=== PATIENT | male | born 1940 | race Two or more races ===

== ENCOUNTER 2016-10-31 11:56 | Emergency (ER) | payer MEDICARE, OTHER ==
[~2016-10-31] VITALS: Ht 175.3 cm; Wt 72.6 kg
[2016-10-31 12:14] VITALS: BP 161/71
[2016-10-31] MEDS ORDERED: ACETAMINOPHEN ES 500 MG TABLET PO ONE (12:30)
[2016-10-31] MEDS ORDERED: ACETAMINOPHEN ES 500 MG TABLET ONE (12:31)
== END 2016-10-31 13:46 | disposition home or self-care (01) ==
LOC: ER 12:04
DX: M17.11 Unilateral primary osteoarthritis, right knee (principal); E11.9 Type 2 diabetes mellitus without complications
CPT/HCPCS: 73502; 73564; 99284; A4606; 73510-TC; Z7610

== ENCOUNTER 2017-05-10 11:27 | Emergency (ER) | payer MEDICARE, OTHER ==
[~2017-05-10] VITALS: Ht 182.9 cm; Wt 81.6 kg
--- NOTE | 2017-05-10 11:46 | NUR ---
bib from home dt congestion, headache, L sided chest pain since last night. Patient is aao4. Appears in no apparent distress.Respiration even and unlabored. Skin is warm to touch and non diaphoretic. Afebrile. vss. Gowned pt and placed on tele monitor.
[2017-05-10 12:30] LABS: BASOPHILS # (AUTO) 0.1 /CMM (0.0-0.2); BASOPHILS % (AUTO) 1.8 % (0.0-2.0); EOSINOPHILS % (AUTO) 0.4 % (0.0-6.0); HEMATOCRIT 48 % (39-51); HEMOGLOBIN 16.2 g/dL (13.5-17.5); LYMPHOCYTES # (AUTO) 1.4 /CMM (0.8-4.8); LYMPHOCYTES % (AUTO) 22.7 % (20.0-44.0); MEAN CORPUSCULAR HEMOGLOBIN 30 PG (26.0-33.0); MEAN CORPUSCULAR HGB CONC 34 g/dl (31.0-36.0); MEAN CORPUSCULAR VOLUME 90 fL (80-96); MONOCYTES # (AUTO) 0.3 /CMM (0.1-1.30); MONOCYTES % (AUTO) 4.8 % (2.0-12.0); NEUTROPHILS # (AUTO) 4.4 /CMM (1.8-8.9); NEUTROPHILS % (AUTO) 70.3 % (43.0-81.0); PLATELET COUNT (AUTO) 146 /CMM (150-450); RDW COEFFICIENT OF VARIATION 12.9 (11.5-15.0); RED BLOOD CELL COUNT(AUTO) 5.33 MIL/uL (4.5-6.0); WHITE BLOOD COUNT (AUTO) 6.2 K/uL (4.3-11.0)
--- NOTE | 2017-05-10 12:33 | NUR ---
IV ACCESS STARTED. BLOOD DRAWN FOR LABS. PT MEDICATED ORDERED.
[2017-05-10 12:41] LABS: CALCIUM, SERUM 8.7 mg/dL (8.5-10.1); CARBON DIOXIDE 30 mmol/L (21-32); CHLORIDE 102 mmol/L (98-107); GLUCOSE 294 mg/dL (74-106); POTASSIUM 4.1 mmol/L (3.5-5.1); SODIUM SERUM 134 mmol/L (136-145); UREA NITROGEN, BLOOD 17 mg/dL (7-18)
[2017-05-10 12:47] LABS: ALANINE AMINOTRANSFERASE 21 U/L (12-78); ALBUMIN 3.5 g/dL (3.4-5.0); ALKALINE PHOSPHATASE 115 U/L (46-116); ASPARTATE AMINOTRANSFERASE 25 U/L (15-37); BILIRUBIN,DIRECT 0.1 mg/dL (0.0-0.2); BILIRUBIN,TOTAL 0.4 mg/dL (0.2-1.0); LIPASE 162 U/L (73-393); TOTAL PROTEIN, SERUM 7.7 g/dL (6.4-8.2)
[2017-05-10 12:49] LABS: TROPONIN I < 0.017 ng/mL (0.00-0.056)
[2017-05-10 12:50] LABS: INR 1.01 (0.87-1.13); PROTHROMBIN TIME 10.5 SECS (9.5-12.7)
--- NOTE | 2017-05-10 14:10 | NUR ---
PROVIDED FOOD TRAY FOR PT.
--- NOTE | 2017-05-10 15:00 | NUR ---
IV removed. Catheter intact and site benign. Pressure and 4x4 applied to site. No bleeding noted.
--- NOTE | 2017-05-10 15:10 | NUR ---
Patient discharged to home in stable condition. Written and verbal after care instructions given. Patient verbalizes understanding of instruction. Pt ambulatory with a steady gait.
[2017-05-10 16:04] VITALS: BP 125/89
== END 2017-05-10 16:07 | disposition home or self-care (01) ==
LOC: ER 11:28
DX: K52.9 Noninfective gastroenteritis and colitis, unspecified (principal); E11.65 Type 2 diabetes mellitus with hyperglycemia; Z79.4 Long term (current) use of insulin; Z59.0 Homelessness
CPT/HCPCS: 36415; 71010-TC; 80048-TC; 80076-TC; 82962-TC; 83690-TC; 84484-TC; 85025-TC; 85730-TC; A4606; J1815; J2405; J7030; Z7610

== ENCOUNTER 2017-05-12 08:07 | Inpatient (IN) | payer OTHER, MEDICARE ==
[~2017-05-12] VITALS: Ht 182.9 cm; Wt 74.8 kg
--- NOTE | 2017-05-12 08:20 | NUR ---
PATIENT PRESENTS TO ER C/O NAUSEA AND VOMITING X 3 EPISODES LAST NIGHT WITH DIFFUSED ABD PAIN. PATIENT BREATHING EVEN AND UNLABORED. NO SOB. VITALS STABLE. SAFETY AND COMFORT MEASURES IN PLACE. MD AT BEDSIDE FOR EVAL.
[2017-05-12] MEDS ORDERED: diphenhydrAMINE HCL 50 MG/ML VIAL ONE (08:29)
[2017-05-12] MEDS ORDERED: ONDANSETRON HCL/PF 4 MG/2 ML VIAL ONE (08:29)
[2017-05-12] MEDS ORDERED: IV NS 0.9% 1,000 ML BAG IV ONE (08:30)
[2017-05-12] MEDS ORDERED: ONDANSETRON HCL/PF 4 MG/2 ML VIAL IVP ONE (08:30)
[2017-05-12] MEDS ORDERED: diphenhydrAMINE HCL 50 MG/ML VIAL IV ONE (08:30)
--- NOTE | 2017-05-12 08:40 | NUR ---
NEW IV STARTED ON LFA, 18 G. BLOOD DRAWN AND SENT TO LAB.
[2017-05-12 08:42] LABS: BASOPHILS % (AUTO) 0.5 % (0.0-2.0); HEMATOCRIT 47 % (39-51); HEMOGLOBIN 15.7 g/dL (13.5-17.5); LYMPHOCYTES # (AUTO) 0.7 /CMM (0.8-4.8); LYMPHOCYTES % (AUTO) 9.6 % (20.0-44.0); MEAN CORPUSCULAR HEMOGLOBIN 30 PG (26.0-33.0); MEAN CORPUSCULAR HGB CONC 33 g/dl (31.0-36.0); MEAN CORPUSCULAR VOLUME 90 fL (80-96); MONOCYTES # (AUTO) 0.5 /CMM (0.1-1.30); MONOCYTES % (AUTO) 7.3 % (2.0-12.0); NEUTROPHILS % (AUTO) 82.6 % (43.0-81.0); PLATELET COUNT (AUTO) 155 /CMM (150-450); RDW COEFFICIENT OF VARIATION 13.3 (11.5-15.0); RED BLOOD CELL COUNT(AUTO) 5.25 MIL/uL (4.5-6.0); WHITE BLOOD COUNT (AUTO) 7.2 K/uL (4.3-11.0)
--- NOTE | 2017-05-12 08:44 | NUR ---
PATIENT MEDICATED PER MD ORDERS.
--- NOTE | 2017-05-12 08:55 | NUR ---
Patient is resting comfortably in bed. VSS. All needs attended.
[2017-05-12 09:11] LABS: ALANINE AMINOTRANSFERASE 20 U/L (12-78); ALBUMIN 3.6 g/dL (3.4-5.0); ALKALINE PHOSPHATASE 105 U/L (46-116); ASPARTATE AMINOTRANSFERASE 22 U/L (15-37); BILIRUBIN,DIRECT 0.1 mg/dL (0.0-0.2); BILIRUBIN,TOTAL 0.8 mg/dL (0.2-1.0); CALCIUM, SERUM 8.6 mg/dL (8.5-10.1); CARBON DIOXIDE 20 mmol/L (21-32); CHLORIDE 101 mmol/L (98-107); CREATININE 1.2 mg/dL (0.6-1.3); LIPASE 181 U/L (73-393); POTASSIUM 3.3 mmol/L (3.5-5.1); SODIUM SERUM 137 mmol/L (136-145); TOTAL PROTEIN, SERUM 8.1 g/dL (6.4-8.2); UREA NITROGEN, BLOOD 14 mg/dL (7-18)
[2017-05-12 09:13] LABS: GLUCOSE 358 mg/dL (74-106)
[2017-05-12] MEDS ORDERED: POTASSIUM CL. PREMIX PERIPHER. 100 ML ONE (09:27)
[2017-05-12] MEDS ORDERED: IV NS 0.9% 1,000 ML IV ONE (09:30)
[2017-05-12] MEDS: POTASSIUM CL. PREMIX PERIPHER. 50 ML IV SCH ×2 (09:30→10:30)
[2017-05-12] MEDS ORDERED: INSU100V7 SQ (09:40)
[2017-05-12] MEDS ORDERED: TRAM50TA2 PO (09:40)
[2017-05-12] MEDS ORDERED: ACET-868 PO (09:40)
[2017-05-12] MEDS ORDERED: CLOP75TA2 PO (09:40)
[2017-05-12] MEDS ORDERED: ATOR10TA PO (09:40)
[2017-05-12] MEDS ORDERED: GABA-534 PO (09:40)
--- NOTE | 2017-05-12 09:50 | NUR ---
REPORT GIVEN TO INNA MATTA FOR ADMISSION.
--- NOTE | 2017-05-12 10:55 | NUR ---
PATIENT TRANSPORTED TO ROOM 307-2 VIA ACLS PROTOCOL FOR ADMISSION. RNSIGRID TO PROVIDE COLE.
[2017-05-12 11:00] VITALS: BP 150/94
--- NOTE | 2017-05-12 11:00 | NUR ---
SALES COMMISSIONS ANALYST NURSE PATIENT RECEIVED FROM ER WITH POTASSIUM IV RUNNING 2ND DOSE. NO NAUSEA/VOMITING NOTED. A & O X4, ESTONIAN SPEAKING, NO SOB, NO DISCOMFORT NOTED. ADMITTED UNDER TELEMETRY MONITORING WITH SR 80. NO COLE NOTED AT THIS TIME. PERIPHERAL IV ACCESS TO LFA, INTACT PATENT. VITALS WNL. BED IN LOW LOCKED POSITION. CALL LIGHT WITHIN REACH. CONTINUING TO MONITOR.
[2017-05-12 11:19] VITALS: BP 150/94
[2017-05-12] MEDS ORDERED: Z GUARD REMEDY 2 OZ OINT TP PRN (12:00)
[2017-05-12] MEDS ORDERED: MAGNESIUM HYDROXIDE 30 ML UDC PO PRN (12:00)
[2017-05-12] MEDS ORDERED: MAG HYDROX/AL HYDROX/SIMETH 30 ML UDC PO PRN (12:00)
[2017-05-12] MEDS ORDERED: DEXTROSE 50%-WATER 50 ML DISP.SYRIN IV PRN (12:00)
[2017-05-12] MEDS ORDERED: ONDANSETRON HCL/PF 4 MG/2 ML VIAL IVP PRN (12:00)
[2017-05-12] MEDS ORDERED: ZOLPIDEM TARTRATE 5 MG TABLET PO PRN (12:00)
[2017-05-12] MEDS: IV NS 0.9% 1,000 ML IV PRN (12:20)
[2017-05-12] MEDS: METRONIDAZOLE 500MG/ NS 100ML 500 MG in PREMIX 1 EA IV SCH ×2 (12:43→19:58)
[2017-05-12] MEDS: BLOOD SUGAR DIAGNOSTIC 1 EACH STRIP IN SCH ×3 (13:17→21:39)
[2017-05-12] MEDS: GABAPENTIN 300 MG CAPSULE PO SCH ×2 (13:17→17:25)
[2017-05-12] MEDS: HYDROCODONE/APAP 5/325MG 1 EACH TABLET PO PRN (13:18)
[2017-05-12 13:56] LABS: APPEARANCE,URINE CLEAR (CLEAR); BILIRUBIN,URINE NEGATIVE (NEGATIVE); BLOOD, URINE 1+ Ery/uL (NEGATIVE); COLOR,URINE YELLOW (YELLOW); KETONES,URINE 1+ (NEGATIVE); LEUKOCYTE ESTERASE ,URINE NEGATIVE (NEGATIVE); NITRITE, URINE NEGATIVE (NEGATIVE); PH,URINE 6.5 (5.0-8.0); PROTEIN,URINE TRACE mg/dl (NEGATIVE); UGLUCOSE 2+ mg/dL (NEGATIVE); UROBILINOGEN,URINE 0.2 EU/dL (0.2)
[2017-05-12] MEDS: LEVOFLOXACIN 500 MG /D5W 100ML 500 MG in PREMIX 1 EA IV SCH (13:59)
[2017-05-12 14:08] LABS: BACTERIA,URINE None seen /HPF (None Seen); RBC,URINE 0-2 /HPF (0-2); SQUAMOUS EPITHELIAL CELL,UR None Seen /HPF (None Seen); WBC,URINE NONE SEEN /HPF (0-3)
[2017-05-12] MEDS: INSULIN REGULAR, HUMAN 100 UNIT/ML 3 ML VIAL SQ PRN ×2 (14:36→17:29)
[2017-05-12 16:00] VITALS: BP 136/77
--- NOTE | 2017-05-12 18:43 | NUR ---
TURKEY BONER NOTES PATIENT RESTING IN BED, NO SOB, NO C/O PAIN, NO DISCOMFORT NOTED. FELLING BETTER THAN YESTERDAY, PER PATIENT. NO NAUSEA/VOMITING OR ABDOMINAL PAIN NOTED. IV ACCESS TO LFA, INTACT PATENT. TOLERATED FULL LIQUID DIET WELL.AMBULATORY WITH MINIMUM ASSISTANCE. BED IN LOW LOCKED POSITION. CALL LIGHT WITHIN REACH. WILL ENDORSE TO REGULATORY SPECIALIST.
--- NOTE | 2017-05-12 19:30 | NUR ---
RN NOTES RECEIVED PT. AWAKE ON BED, A/OX3, AT BEDSIDE, DENIES PAIN, NO SOB,AMBULATE WITH ASSIST, CALL LIGHT WITHIN REACH, SIDERAILS UPX2 CONTINUE TO MONITOR
[2017-05-12 20:00] VITALS: BP 140/88
[2017-05-13] VITALS: BP 150/74
[2017-05-13] MEDS: ACETAMINOPHEN 325 MG TABLET PO PRN ×2 (00:18→20:12)
--- NOTE | 2017-05-13 00:20 | NUR ---
RN NOTES PT HAS TEMPERATUFE OF 100- TYLENOL 650MG PO GIVEN ORDERED
[2017-05-13] MEDS: BLOOD SUGAR DIAGNOSTIC 1 EACH STRIP IN SCH ×2 (01:02→04:44)
[2017-05-13] MEDS: HYDROCODONE/APAP 5/325MG 1 EACH TABLET PO PRN ×2 (01:02→08:40)
--- NOTE | 2017-05-13 01:02 | NUR ---
RN NOTES COMPLAINED OF BILATERAL LOWER EXTREMITIES PAIN- NORCO 5/325 MG PO GIVEN ORDERED, V/S STABLE
[2017-05-13] MEDS: INSULIN REGULAR, HUMAN 100 UNIT/ML 3 ML VIAL SQ PRN ×4 (01:08→17:13)
[2017-05-13 04:00] VITALS: BP 131/79
[2017-05-13] MEDS: METRONIDAZOLE 500MG/ NS 100ML 500 MG in PREMIX 1 EA IV SCH ×3 (04:44→20:12)
[2017-05-13] MEDS: IV NS 0.9% 1,000 ML IV PRN (04:52)
--- NOTE | 2017-05-13 06:43 | NUR ---
RN NOTES AWAKE, DENIES PAIN, NO SOB, IV LINE PATENT NO REDNESS OR SWOLLEN, MORNING CARE RENDERED, CALL LIGHT WITHIN REACH, SIDERAILS UPX2 PT,. NEEDS ATTENDED
[2017-05-13 07:07] LABS: BASOPHILS % (AUTO) 0.3 % (0.0-2.0); EOSINOPHILS # (AUTO) 0.1 /CMM (0.0-0.7); EOSINOPHILS % (AUTO) 0.7 % (0.0-6.0); HEMATOCRIT 47 % (39-51); HEMOGLOBIN 15.3 g/dL (13.5-17.5); LYMPHOCYTES # (AUTO) 2.2 /CMM (0.8-4.8); LYMPHOCYTES % (AUTO) 27.5 % (20.0-44.0); MEAN CORPUSCULAR HEMOGLOBIN 30 PG (26.0-33.0); MEAN CORPUSCULAR HGB CONC 33 g/dl (31.0-36.0); MEAN CORPUSCULAR VOLUME 90 fL (80-96); MONOCYTES # (AUTO) 0.9 /CMM (0.1-1.30); MONOCYTES % (AUTO) 10.7 % (2.0-12.0); NEUTROPHILS # (AUTO) 4.9 /CMM (1.8-8.9); NEUTROPHILS % (AUTO) 60.8 % (43.0-81.0); PLATELET COUNT (AUTO) 149 /CMM (150-450); RDW COEFFICIENT OF VARIATION 13.5 (11.5-15.0); RED BLOOD CELL COUNT(AUTO) 5.15 MIL/uL (4.5-6.0)
--- NOTE | 2017-05-13 07:10 | NUR ---
RN NOTES SPOKE TO DR. KURTZ IF WE CAN CHANGE THE ACCU CHECK TO AC&HS INSTEAD OF Q 4HRS. BECAUSE PT IS ALREADY COMPLAINING AND BLOOD SUGAR IS NOT THAT HIGH. DR. KURTZ CHANGE IT TO ACCU CHECK AC & HS ORDER NOTED AND CARRIED OUT
--- NOTE | 2017-05-13 07:10 | NUR ---
SHIP BOSS NOTES RECEIVED PATIENT IN BED, SLEEPING, AROUSES EASILY. ON TELE MONITOR, SINUS RHYTHM, APPEARS COMFORTABLE IN BED, NO SOB, BREATHING EVEN AND NON LABORED. IV NS INFUSING AT 75ML/HR. CALL LIGHT WITHIN REACH. WILL CONT TO MONITOR.
[2017-05-13] MEDS ORDERED: DEXTROSE 50%-WATER 50 ML DISP.SYRIN IV PRN (07:30)
[2017-05-13] MEDS: BLOOD SUGAR DIAGNOSTIC 1 EACH STRIP VI SCH ×4 (07:30→22:18)
[2017-05-13 07:33] LABS: CHOLESTEROL 216 mg/dL (<200); HDL CHOLESTEROL 33 mg/dL (40-60); LDL 162 mg/dL (0-99); TRIGLYCERIDES 84 mg/dL (30-150)
--- NOTE | 2017-05-13 07:37 | NUR ---
ACCU CHECK 0730 NON ADMINISTERED, PATIENT BS 170MG/DL AND RECEIVED 3 UNITS INSULIN REGULAR AT 0505 (2 HOURS AGO). WILL RE CHECK BS NEXT AT 1200.
[2017-05-13 07:47] LABS: CALCIUM, SERUM 8.2 mg/dL (8.5-10.1); CARBON DIOXIDE 27 mmol/L (21-32); CHLORIDE 103 mmol/L (98-107); GLUCOSE 161 mg/dL (74-106); MAGNESIUM 1.4 mg/dL (1.8-2.4); PHOSPHORUS 2.9 mg/dL (2.5-4.9); POTASSIUM 3.5 mmol/L (3.5-5.1); SODIUM SERUM 140 mmol/L (136-145); UREA NITROGEN, BLOOD 10 mg/dL (7-18)
[2017-05-13 08:00] VITALS: BP 136/66
[2017-05-13] MEDS: CLOPIDOGREL BISULFATE 75 MG TABLET PO SCH (08:32)
[2017-05-13] MEDS: PANTOPRAZOLE 40 MG TABLET.DR PO SCH (08:33)
[2017-05-13] MEDS: GABAPENTIN 300 MG CAPSULE PO SCH ×3 (08:33→16:36)
[2017-05-13] MEDS: ATORVASTATIN 10 MG TABLET PO SCH (08:41)
[2017-05-13] MEDS: Magnesium 1GM/D5W 100ML PREMIX 100 ML IV SCH ×4 (10:15→16:34)
[2017-05-13] MEDS: LEVOFLOXACIN 500 MG /D5W 100ML 500 MG in PREMIX 1 EA IV SCH (13:34)
[2017-05-13 16:00] VITALS: BP 122/71
--- NOTE | 2017-05-13 18:16 | NUR ---
MS RN CLOSING NOTES PATIENT IN BED, NOT IN DISTRESS. ON ANTIBIOTIC WITH NO ADVERSE SIDE EFFECT, AFEBRILE, NO DIARRHEA. MAGNESIUM SUPPLEMENTED ORDERED. CURRENT DIET TOLERATED WELL, NO EPISODE OF VOMITING. NO C/O PAIN AT THIS TIME. CALL LIGHT WITHIN REACH. CONT HOSP PER DR. MARTINEZ. WILL ENDORSE TO PRIMER CHARGING TOOL SETTER RN FOR COLE.
[2017-05-13 20:00] VITALS: BP 144/83
--- NOTE | 2017-05-13 20:00 | NUR ---
MS RN NOTES PATIENT AWAKE, TALKATIVE, RESTING IN BED. NO C/O PAIN, NO SOB NOTED. IV ACCESS TO LFA INTACT PATENT RUNNING WITH NS 75ML/HR. NO S/S OF INFECTION NOTED AT IV SITE. BED IN SEMI COLLIER POSITION PER PATIENT REQUEST. BE DIN LOW LOCKED POSITION. CALL LIGHT WITHIN REACH. OBSERVING CLOSELY.
[2017-05-13] MEDS: *INSULIN REGULAR(HUMULIN R)HUM 100 UNIT/ML VIAL SQ PRN (22:22)
--- NOTE | 2017-05-14 00:05 | NUR ---
MS RN NOTES PATIENTS VITAL SIGNS WERE CHECKED & NOTED WITH TEMPERATURE OF 100.4. PRN TYLENOL ADMINISTERED. TEMPERATURE DECREASED TO 98.3. PATIENT SLEEPING COMFORTABLY IN BED. CALL LIGHT WITHIN REACH.
[2017-05-14] MEDS: METRONIDAZOLE 500MG/ NS 100ML 500 MG in PREMIX 1 EA IV SCH (03:06)
[2017-05-14] MEDS: IV NS 0.9% 1,000 ML IV PRN (03:13)
--- NOTE | 2017-05-14 04:00 | NUR ---
MS RN NOTES PATIENT SLEEPING IN SEMI COLLIER POSITION. NO DISTRESS OR DISCOMFORT NOTED. IV FLUIDS RUNNING ORDERED. CALL LIGHT WITHIN REACH. OBSERVING CLOSELY.
--- NOTE | 2017-05-14 06:30 | NUR ---
MS RN NOTES PATIENT SLEPT INTERMITTENTLY IN SEMI COLLIER POSITION. NO C/O PAIN. NO SOB, NO S/S OF INFECTION NOTED. VITALS SIGNS WNL. NO FEVER NOTED. IV ACCESS TO LFA, INTACT PATENT, RUNNING WITH NS AT 75ML/HR. NO REDNESS/INFILTRATION NOTED AT IV SITE. AMBULATED WITH WALKER TO THE RESTROOM. BED IN LOW LOCKED POSITION. CALL LIGHT WITHIN REACH. WILL ENDORSE TO AM SHIFT.
[2017-05-14] MEDS: BLOOD SUGAR DIAGNOSTIC 1 EACH STRIP VI SCH ×4 (06:42→21:11)
[2017-05-14] MEDS: INSULIN REGULAR, HUMAN 100 UNIT/ML 3 ML VIAL SQ PRN ×3 (06:46→17:32)
--- NOTE | 2017-05-14 07:02 | NUR ---
RN NOTES AWAKE, DENIES PAIN, NO SOB, IV LINE PATENT, NO REDNESS OR SWOLLEN, PT NEEDS ATTENDED
--- NOTE | 2017-05-14 07:15 | NUR ---
MS RN NOTES RECEIVED PATIENT IN BED, ON ROOM AIR, TOLERATING WELL, NO SOB. IVF NS INFUSING AT 75ML/HR, APPEARS COMFORTABLY IN BED, NO C/O PAIN AT THIS TIME. CALL LIGHT WITHIN REACH. WILL CONT TO MONITOR.
[2017-05-14 07:51] LABS: BASOPHILS % (AUTO) 0.3 % (0.0-2.0); EOSINOPHILS # (AUTO) 0.1 /CMM (0.0-0.7); EOSINOPHILS % (AUTO) 0.7 % (0.0-6.0); HEMATOCRIT 45 % (39-51); HEMOGLOBIN 14.9 g/dL (13.5-17.5); LYMPHOCYTES # (AUTO) 1.4 /CMM (0.8-4.8); LYMPHOCYTES % (AUTO) 15.6 % (20.0-44.0); MEAN CORPUSCULAR HEMOGLOBIN 30 PG (26.0-33.0); MEAN CORPUSCULAR HGB CONC 33 g/dl (31.0-36.0); MEAN CORPUSCULAR VOLUME 91 fL (80-96); MONOCYTES # (AUTO) 0.7 /CMM (0.1-1.30); MONOCYTES % (AUTO) 8.1 % (2.0-12.0); NEUTROPHILS # (AUTO) 6.9 /CMM (1.8-8.9); NEUTROPHILS % (AUTO) 75.3 % (43.0-81.0); PLATELET COUNT (AUTO) 155 /CMM (150-450); RDW COEFFICIENT OF VARIATION 13.2 (11.5-15.0); RED BLOOD CELL COUNT(AUTO) 4.94 MIL/uL (4.5-6.0); WHITE BLOOD COUNT (AUTO) 9.2 K/uL (4.3-11.0)
[2017-05-14 08:00] VITALS: BP_SYST 143; BP_DIAS 61; BP_DIAS 67
[2017-05-14 08:11] LABS: CALCIUM, SERUM 8.4 mg/dL (8.5-10.1); CARBON DIOXIDE 24 mmol/L (21-32); CHLORIDE 103 mmol/L (98-107); CREATININE 0.9 mg/dL (0.6-1.3); GLUCOSE 205 mg/dL (74-106); MAGNESIUM 1.7 mg/dL (1.8-2.4); PHOSPHORUS 2.8 mg/dL (2.5-4.9); POTASSIUM 3.6 mmol/L (3.5-5.1); SODIUM SERUM 138 mmol/L (136-145); UREA NITROGEN, BLOOD 7 mg/dL (7-18)
[2017-05-14] MEDS: CLOPIDOGREL BISULFATE 75 MG TABLET PO SCH (08:52)
[2017-05-14] MEDS: ATORVASTATIN 10 MG TABLET PO SCH (08:53)
[2017-05-14] MEDS: PANTOPRAZOLE 40 MG TABLET.DR PO SCH (08:53)
[2017-05-14] MEDS: HYDROCODONE/APAP 5/325MG 1 EACH TABLET PO PRN (08:54)
[2017-05-14] MEDS: GABAPENTIN 300 MG CAPSULE PO SCH ×3 (08:56→16:34)
[2017-05-14] MEDS: METRONIDAZOLE 500 MG TABLET PO SCH ×2 (12:53→21:23)
[2017-05-14] MEDS: Magnesium 1GM/D5W 100ML PREMIX 100 ML IV SCH ×2 (12:53→14:01)
[2017-05-14] MEDS: LEVOFLOXACIN (500MG) 500 MG TABLET PO SCH (12:56)
[2017-05-14] MEDS: TRAMADOL HCL 50 MG TABLET PO PRN (12:57)
[2017-05-14] MEDS ORDERED: Magnesium 1GM/D5W 100ML PREMIX 100 ML IV SCH (14:00)
[2017-05-14 16:00] VITALS: BP 125/84
--- NOTE | 2017-05-14 18:16 | NUR ---
MS RN CLOSING NOTES PATIENT IN BED, IVF NS INFUSING AT 75ML/HR, TOLERATING WELL, NO SOB. MAGNESIUM SUPPLEMENTED. ON ANTIBIOTIC WITH NO ADVERSE SIDE EFFECT. CURRENT DIET TOLERATED WELL, NO EPISODE OF VOMITING. CALL LIGHT WITHIN REACH. CONT HOSP PER DR. MARTINEZ, WILL ENDORSE TO COIN MACHINE ASSEMBLER RN FOR COLE.
[2017-05-14 20:00] VITALS: BP 137/82
[2017-05-14] MEDS: *INSULIN REGULAR(HUMULIN R)HUM 100 UNIT/ML VIAL SQ PRN (21:24)
[2017-05-15] MEDS: METRONIDAZOLE 500 MG TABLET PO SCH ×3 (04:45→21:51)
[2017-05-15] MEDS: IV NS 0.9% 1,000 ML IV PRN (05:35)
--- NOTE | 2017-05-15 06:03 | NUR ---
RN NOTes Pt received patient at around 21:30 from INNA Watters. Patient is in bed awake and alert x1. No apparent distress noted. Skin warm and dry to touch. No c/o pain or discomfort. Noted with confusion, Reality orientation provided. All due meds given as ordered. All needs attended. Will continue to monitor.
--- NOTE | 2017-05-15 06:08 | NUR ---
RN NOTES Received patient in bed awake and alert x4, no c/o bill or discomfort , no SOB, skin is warm and dry to touch, pt in no apparent distress. at bedside. All due meds given as ordered. Assisted to the bathroom. All needs attended. No acute change in condition. Will continue to monitor.
--- NOTE | 2017-05-15 06:08 | NUR ---
RN NOTES Error in previous charting.
[2017-05-15] MEDS: PANTOPRAZOLE 40 MG TABLET.DR PO SCH (06:23)
[2017-05-15] MEDS: BLOOD SUGAR DIAGNOSTIC 1 EACH STRIP VI SCH ×4 (06:26→21:52)
[2017-05-15] MEDS: INSULIN REGULAR, HUMAN 100 UNIT/ML 3 ML VIAL SQ PRN ×4 (06:29→22:11)
[2017-05-15 07:15] LABS: CARBON DIOXIDE 25 mmol/L (21-32); CHLORIDE 103 mmol/L (98-107); CREATININE 0.9 mg/dL (0.6-1.3); GLUCOSE 159 mg/dL (74-106); MAGNESIUM 1.5 mg/dL (1.8-2.4); SODIUM SERUM 138 mmol/L (136-145); UREA NITROGEN, BLOOD 10 mg/dL (7-18)
[2017-05-15 08:00] VITALS: BP 120/79
[2017-05-15 08:45] VITALS: BP_SYST 108; BP_SYST 115; BP_SYST 124; BP_DIAS 49; BP_DIAS 55; BP_DIAS 74
--- NOTE | 2017-05-15 08:45 | NUR ---
m/s upholstery mechanic: md visit seen and examined by dr. strickland at this time and ortho static b/p done per md. md aware of orthostatic b/p results.
[2017-05-15] MEDS: CLOPIDOGREL BISULFATE 75 MG TABLET PO SCH (08:54)
[2017-05-15] MEDS: ATORVASTATIN 10 MG TABLET PO SCH (08:54)
[2017-05-15] MEDS: TRAMADOL HCL 50 MG TABLET PO PRN (08:54)
[2017-05-15] MEDS: GABAPENTIN 300 MG CAPSULE PO SCH ×3 (08:54→16:35)
[2017-05-15 08:57] VITALS: BP 120/79
[2017-05-15] MEDS: Magnesium 1GM/D5W 100ML PREMIX 100 ML IV SCH ×2 (09:25→10:47)
[2017-05-15] MEDS: POTASSIUM CL. PREMIX PERIPHER. 50 ML IV SCH ×7 (09:46→16:43)
--- NOTE | 2017-05-15 09:55 | NUR ---
m/s bituminous distributor operator: notes placed pt on tele sr=[id number] due to iv potassium chloride ivpb. will continue to monitor.
[2017-05-15] MEDS: LEVOFLOXACIN (500MG) 500 MG TABLET PO SCH (11:53)
--- NOTE | 2017-05-15 14:30 | NUR ---
m/s superintendent radio communications: notes tele remains sr=[id number]. potassium chloride 10meq ivpb in progress run by rn covering. call light within reach. will continue to monitor.
[2017-05-15 16:00] VITALS: BP 116/69
--- NOTE | 2017-05-15 16:43 | NUR ---
m/s framing machine tender: notes last dose of potassium chloride 10meq (bag #6) given by hailey. tele remains sr=72. instructed to call for assistance. will continue to monitor. Addendum: 05/15/17 at 1706 by PARTHA WATSON RN above charting error
--- NOTE | 2017-05-15 16:43 | NUR ---
m/s aircraft manager: notes last dose of potassium chloride 10meq (bag #6) given by rn. tele remains sr=[id number]. instructed to call for assistance. will continue to monitor.
[2017-05-15] MEDS ORDERED: POTASSIUM CL. PREMIX PERIPHER. 50 ML IV SCH (17:15)
--- NOTE | 2017-05-15 18:05 | NUR ---
m/s tent worker: notes tele removed. potassium chloride ivpb completed. no arrhythmia noted. needs attended. assisted to bathroom and back safely to bed. instructed to call for assistance. call light within reach. will continue to monitor.
--- NOTE | 2017-05-15 19:48 | NUR ---
nURSING nOTES: rECIEVED PATIENT ALERT AND ORIENTATED. eXPLAINED TO HIM ABOUT CALLING THE NURSE BEFORE GETTIING OUT OF BED FOR SAFETY. bED aLARM ON cOMPRESSION STKINGS PLACED ON PT WITH EXPLAINATION. gOOD EYE CONTACT SPEECH CLEAR MOVING ALL EXTREMITIES. nO PEDAL EDEMA. NO PAIN
[2017-05-15 20:29] VITALS: BP 126/71
[2017-05-15] MEDS: *INSULIN REGULAR(HUMULIN R)HUM 100 UNIT/ML VIAL SQ PRN (22:22)
[2017-05-16] MEDS: IV NS 0.9% 1,000 ML IV PRN (00:03)
--- NOTE | 2017-05-16 04:35 | NUR ---
nursing notes patient this 12 hours had a restless sleep, waking up to use the urinal about 6 times, once pulling out his iv. in replaced and will remind him to use the urinal or call the nurse to get oob no c/o of dizziness or nausea, speaks of going home today'
[2017-05-16] MEDS: METRONIDAZOLE 500 MG TABLET PO SCH ×2 (05:00→12:03)
[2017-05-16] MEDS: INSULIN REGULAR, HUMAN 100 UNIT/ML 3 ML VIAL SQ PRN ×3 (06:27→17:42)
[2017-05-16] MEDS: HYDROCODONE/APAP 5/325MG 1 EACH TABLET PO PRN (06:40)
--- NOTE | 2017-05-16 07:05 | NUR ---
MS RN OPENING NOTES RECEIVED PT FROM NIGHTSHIFT NURSE IN STABLE CONDITION. PT IS A/O X3. NO SOB OR SIGNS OF DISTRESS NOTED. BREATHING IS EVEN AND UNLABORED. PT DENIES ANY PAIN AT THIS TIME. NO DIARRHEA NOTED OR REPORTED BY PT. OR NIGHTSHIFT NURSE. IV PRESENT ON LEFT HAND 22G INFUSING NS @75ML/HR. PT IS TOLERATING INFUSION WILL. NO REDNESS OR SIGNS OF INFILTRATION NOTED. PT IS TOLERATING INFUSION WELL. BED IN LOW LOCKED POSITION, SIDE RAILS UP X3, CALL LIGHT WITHIN REACH. WILL CONTINUE TO MONITOR.
[2017-05-16 08:00] VITALS: BP 132/79
[2017-05-16] MEDS: BLOOD SUGAR DIAGNOSTIC 1 EACH STRIP VI SCH ×3 (08:48→17:30)
[2017-05-16] MEDS: ATORVASTATIN 10 MG TABLET PO SCH (08:49)
[2017-05-16] MEDS: PANTOPRAZOLE 40 MG TABLET.DR PO SCH (08:50)
[2017-05-16] MEDS: CLOPIDOGREL BISULFATE 75 MG TABLET PO SCH (08:50)
[2017-05-16] MEDS: GABAPENTIN 300 MG CAPSULE PO SCH ×3 (08:50→17:30)
[2017-05-16] MEDS ORDERED: METR500T PO (08:53)
[2017-05-16] MEDS ORDERED: LEVO500T15 PO (08:53)
[2017-05-16] MEDS: LEVOFLOXACIN (500MG) 500 MG TABLET PO SCH (12:03)
--- NOTE | 2017-05-16 14:10 | NUR ---
Social service consult requested by Dr. Nina for homeless resources. Pt. is a 77 year old male who was admitted to [facility] for gastroenteritis. SW met with pt. bedside. Pt. is alert and oriented x4. Pt. is predominantly Jamaican speaking, however is able to speak and understand some Nepali. Pt. states he lives in his car and has been living in his car for the past two years. Pt. stated prior to two years, he was living with his family. However, when the family decided to move to [place], he decided to stay back. Pt. has a son who resides in [place]. SW offered alf placement, however pt. refused. Pt. did accept the following Homeless resources: List of food [place] in [facility], Homeless resource Directory that has information on emergency housing, hot meals and showers, Homeless resource agencies and list of homeless shelters such as [facility] on [facility] and [facility] in [place]. JANUSZ with the help of educational speech language clinician, YARELIS William contacted pt's friend Celina who confirmed that she will be picking up pt. today around 5PM since pt. is medically cleared.
[2017-05-16 16:00] VITALS: BP 112/58
--- NOTE | 2017-05-16 19:05 | NUR ---
MS RN CLOSING NOTES PT REMAINS IN STABLE CONDITION. ALL NEEDS MET DURING SHIFT AND ORDERS CARRIED OUT ACCORDINGLY. PT STATES THAT HIS FRIEND IS ON HER WAY TO PICK HIM UP. DISCHARGE INSTRUCTIONS DISCUSSED WITH PT. PT GIVEN PRESCRIPTION AND DISCHARGE PAPERWORK. PT. SIGNED ALL DISCHARGE PAPERWORK. WILL ENDORSE TO [facility] NURSE TO OVERSEE DISCHARGE.
--- NOTE | 2017-05-16 19:30 | NUR ---
RN NOTES RECEIVED PT. AWAKE ON BED, A/OX3, JUST WAITING FOR HIS FRIEND TO PICK HIM UP, DENIES PAIN, NO SOB, CALL LIGHT WITHIN REACH, SIDERAILS UPX2 CONTINUE TO MONITOR
[2017-05-16 20:00] VITALS: BP 121/71
--- NOTE | 2017-05-16 20:15 | NUR ---
RN NOTES PT. FRIEND CAME AND TOLD US THAT PT DOESN'T WANT TO LEAVE, FIRST HE TOLD HIS FRIEND THAT HE DOESN'T WANT TO GO TO HIS FAMILY AND THEN HE SAID HE FEELS DIZZY BUT V/S STABLE
--- NOTE | 2017-05-16 20:25 | NUR ---
RN NOTES CALLED [facility] TO INFORMED HIM THAT PT. DOESN'T WANT TO LEAVE AGAIN, THE PT. WAS ALREADY DISCHARGE SINCE YESTERDAY AND THEY ALREADY LET HIM STAY LAST NIGHT. CHARGE NURSE TALKED TO THE PT. AND WE READ FROM ELECTRONIC DESIGN ENGINEER NOTES THAT PT. REFUSED DETENTION. DR. TUCKER DID NOT GIVE ONE MORE NIGHT , HE STATED IF PT REFUSED DETENTION WE CANNOT DO ANYTHING ABOUT IT
--- NOTE | 2017-05-16 20:35 | NUR ---
RN NOTES TALKED TO THE PT. AND EXPLAINED TO HIM WELL TO HIS FRIEND THAT THE DOCTOR WILL NOT GIVE HIM ANOTHER NIGHT TO STAY. NOW THE PT. WAS TELLING HIS FRIEND THAT NOBODY OFFER HIM [facility]. CHARGE NURSE TALKED TO THE PT WELL TO PT'S FRIEND. AND AGREED TO LEAVE. WOOD FENCE INSTALLER WHEEL THE PT DOWN, V/S STABLE, DENIES PAIN, NO SOB
--- NOTE | 2017-05-16 20:35 | NUR ---
RN NOTES PT LEAVE AGREED TO BE DISCHARGE , DISCHARGE INSTRUCTION WAS GIVEN BY THE DAYSHIFT AND WE REPEAT IT AGAIN SO PT. WILL UNDERSTAND IT. PT DOESN'T WANT TO LISTEN SINCE HE 'S UPSET BECAUSE MUCH POSSIBLE HE DOESN'T WANT TO LEAVE
== END 2017-05-16 20:30 | disposition home or self-care (01) | DRG 373 ==
LOC: ER 08:11 → TELE 10:12 → MED 05-13 11:44
PROVIDERS: ADMIT Internal Medicine; ATTEND Internal Medicine
DX: A04.9 Bacterial intestinal infection, unspecified (principal); E11.65 Type 2 diabetes mellitus with hyperglycemia; K76.89 Other specified diseases of liver; E86.0 Dehydration; E83.42 Hypomagnesemia; E78.5 Hyperlipidemia, unspecified; E87.6 Hypokalemia; I10 Essential (primary) hypertension; K21.9 Gastro-esophageal reflux disease without esophagitis; N20.0 Calculus of kidney; K40.90 Unilateral inguinal hernia, without obstruction or gangrene, not specified as recurrent; M46.06 Spinal enthesopathy, lumbar region; I25.10 Atherosclerotic heart disease of native coronary artery without angina pectoris; N40.0 Benign prostatic hyperplasia without lower urinary tract symptoms; M16.11 Unilateral primary osteoarthritis, right hip; Z79.4 Long term (current) use of insulin; I70.8 Atherosclerosis of other arteries
CPT/HCPCS: 36415; 80048-TC; 80061-TC; 80076-TC; 81000-TC; 82962-TC; 83690-TC; 83735-TC; 84100-TC; 85025-TC; 87040-TC; 87081-TC; 97116-TC; 97530-TC; A4216; A4606; J1200; J1815; J1956; J2405; J3475; J3480; J3490; J7030; J7050; Z7610

== ENCOUNTER 2017-07-19 11:19 | Emergency (ER) | payer MEDICARE, OTHER ==
[~2017-07-19] VITALS: Ht 160 cm; Wt 77.1 kg
[2017-07-19 11:19] VITALS: BP 124/59
[~2017-07-19 11:19] MED LIST: ACET-868 PO; ATOR10TA PO; CLOP75TA2 PO; GABA-534 PO; INSU100V7 SQ; LEVO500T15 PO; METR500T PO; TRAM50TA2 PO
[2017-07-19] MEDS ORDERED: KETOROLAC TROMETHAMINE INJ 30 MG/ML VIAL ONE (11:48)
[2017-07-19] MEDS ORDERED: KETOROLAC TROMETHAMINE INJ 30 MG/ML VIAL IM ONE (12:00)
== END 2017-07-19 12:12 | disposition home or self-care (01) ==
LOC: ER 11:21
DX: M54.41 Lumbago with sciatica, right side (principal); I10 Essential (primary) hypertension; E11.9 Type 2 diabetes mellitus without complications; E78.5 Hyperlipidemia, unspecified; Z59.0 Homelessness; Z79.4 Long term (current) use of insulin
CPT/HCPCS: 96372; 99283; A4606; J1885; Z7610

== ENCOUNTER 2018-09-07 13:32 | Emergency (ER) | payer MEDICARE, OTHER ==
[~2018-09-07] VITALS: Ht 170.2 cm; Wt 79.4 kg
[~2018-09-07 13:32] MED LIST changes: +CLOP75TA15 PO; -CLOP75TA2 PO; -LEVO500T15 PO; +LEVO500T2 PO
--- NOTE | 2018-09-07 13:51 | NUR ---
DR MENARD AT BEDSIDE FOR EVAL.
[2018-09-07] MEDS ORDERED: IV NS 0.9% 500 ML BAG IV ONE (14:30)
[2018-09-07] MEDS ORDERED: ONDANSETRON HCL/PF 4 MG/2 ML VIAL IVP ONE (14:30)
--- NOTE | 2018-09-07 14:35 | NUR ---
DOCK COORDINATOR AT BEDSIDE FOR BLOOD DRAW.
[2018-09-07 14:41] LABS: BASOPHILS # (AUTO) 0.1 /CMM (0.0-0.2); EOSINOPHILS % (AUTO) 1.3 % (0.0-6.0); HEMATOCRIT 43 % (39-51); HEMOGLOBIN 14.4 g/dL (13.5-17.5); LYMPHOCYTES # (AUTO) 1.3 /CMM (0.8-4.8); LYMPHOCYTES % (AUTO) 16.9 % (20.0-44.0); MEAN CORPUSCULAR HGB CONC 34 g/dl (31.0-36.0); MEAN CORPUSCULAR VOLUME 91 fL (80-96); MONOCYTES # (AUTO) 0.6 /CMM (0.1-1.30); MONOCYTES % (AUTO) 7.9 % (2.0-12.0); NEUTROPHILS # (AUTO) 5.8 /CMM (1.8-8.9); NEUTROPHILS % (AUTO) 72.9 % (43.0-81.0); PLATELET COUNT (AUTO) 250 /CMM (150-450); RED BLOOD CELL COUNT(AUTO) 4.71 MIL/uL (4.5-6.0); WHITE BLOOD COUNT (AUTO) 7.9 K/uL (4.3-11.0)
[2018-09-07] MEDS ORDERED: ONDANSETRON HCL/PF 4 MG/2 ML VIAL ONE (14:41)
[2018-09-07 14:53] LABS: ALANINE AMINOTRANSFERASE 18 U/L (12-78); ALBUMIN 3.2 g/dL (3.4-5.0); ALKALINE PHOSPHATASE 133 U/L (46-116); ASPARTATE AMINOTRANSFERASE 11 U/L (15-37); BILIRUBIN,DIRECT 0.1 mg/dL (0.0-0.2); BILIRUBIN,TOTAL 0.4 mg/dL (0.2-1.0); CALCIUM, SERUM 8.1 mg/dL (8.5-10.1); CARBON DIOXIDE 27 mmol/L (21-32); CHLORIDE 101 mmol/L (98-107); CREATININE 1.2 mg/dL (0.6-1.3); LIPASE 131 U/L (73-393); POTASSIUM 3.8 mmol/L (3.5-5.1); SODIUM SERUM 135 mmol/L (136-145); TOTAL PROTEIN, SERUM 7.3 g/dL (6.4-8.2); UREA NITROGEN, BLOOD 13 mg/dL (7-18)
[2018-09-07 14:55] LABS: GLUCOSE 480 mg/dL (74-106)
[2018-09-07] MEDS ORDERED: INSULIN REGULAR, HUMAN 100 UNIT/ML 10 ML VIAL ONE (15:23)
[2018-09-07] MEDS ORDERED: INSULIN REGULAR, HUMAN 100 UNIT/ML 10 ML VIAL SQ ONE (15:30)
--- NOTE | 2018-09-07 15:45 | NUR ---
PT STATES FEELING MUCH BETTER AND WANTS TO LEAVE NOW BECAUSE HE IS GOING TO DRIVE AND DONT WANT TO LEAVE TO LATE. VSS. AMBULATORY W/ WALKER, ,STEADY. VSS. D/C HOME IN STABLE CONDITION.
[2018-09-07 15:47] VITALS: BP 132/77
== END 2018-09-07 15:50 | disposition home or self-care (01) ==
LOC: ER 13:38
DX: S40.012A Contusion of left shoulder, initial encounter (principal); S50.02XA Contusion of left elbow, initial encounter; E11.9 Type 2 diabetes mellitus without complications; I10 Essential (primary) hypertension; E78.5 Hyperlipidemia, unspecified; M54.30 Sciatica, unspecified side; Z60.2 Problems related to living alone; Z79.4 Long term (current) use of insulin; Z79.899 Other long term (current) drug therapy; W18.39XA Other fall on same level, initial encounter; Y93.89 Activity, other specified; Y92.89 Other specified places as the place of occurrence of the external cause; Y99.8 Other external cause status
CPT/HCPCS: 36415; 73030-TC; 73080-TC; 80048-TC; 80076-TC; 83690-TC; 85025-TC; J1815; J2405; J7040

== ENCOUNTER 2019-02-10 19:46 | Emergency (ER) | payer MEDICARE, OTHER ==
[~2019-02-10] VITALS: Ht 180.3 cm; Wt 78.0 kg
--- NOTE | 2019-02-10 20:20 | NUR ---
PRESENTED TO THE ER W/ C/O L SHOULDER / LUE PAIN S/P FALL . VSS. WILL CONT TO MONITOR
[2019-02-10 20:34] LABS: BASOPHILS # (AUTO) 0.1 /CMM (0.0-0.2); BASOPHILS % (AUTO) 1.1 % (0.0-2.0); EOSINOPHILS % (AUTO) 2.4 % (0.0-6.0); HEMATOCRIT 44 % (39-51); LYMPHOCYTES # (AUTO) 1.4 /CMM (0.8-4.8); LYMPHOCYTES % (AUTO) 21.2 % (20.0-44.0); MEAN CORPUSCULAR HGB CONC 34 g/dl (31.0-36.0); MEAN CORPUSCULAR VOLUME 92 fL (80-96); MONOCYTES # (AUTO) 0.6 /CMM (0.1-1.30); MONOCYTES % (AUTO) 8.6 % (2.0-12.0); NEUTROPHILS # (AUTO) 4.5 /CMM (1.8-8.9); NEUTROPHILS % (AUTO) 66.7 % (43.0-81.0); PLATELET COUNT (AUTO) 205 /CMM (150-450); RED BLOOD CELL COUNT(AUTO) 4.76 MIL/uL (4.5-6.0); WHITE BLOOD COUNT (AUTO) 6.7 K/uL (4.3-11.0)
[2019-02-10 20:42] LABS: CALCIUM, SERUM 8.5 mg/dL (8.5-10.1); CARBON DIOXIDE 24 mmol/L (21-32); CHLORIDE 102 mmol/L (98-107); CREATININE 1.1 mg/dL (0.6-1.3); GLUCOSE 302 mg/dL (74-106); SODIUM SERUM 136 mmol/L (136-145); UREA NITROGEN, BLOOD 26 mg/dL (7-18)
[2019-02-10 20:58] LABS: ALANINE AMINOTRANSFERASE 18 U/L (12-78); ALBUMIN 3.4 g/dL (3.4-5.0); ALKALINE PHOSPHATASE 132 U/L (46-116); ASPARTATE AMINOTRANSFERASE 11 U/L (15-37); BILIRUBIN,DIRECT 0.1 mg/dL (0.0-0.2); BILIRUBIN,TOTAL 0.4 mg/dL (0.2-1.0)
--- NOTE | 2019-02-10 21:07 | NUR ---
LAYING DOWN IN BED COMFORTABLY. PT UNABLE TO GIVE URINE SAMPLE YET. WILL ASK AGAIN
[2019-02-10 21:15] LABS: ACETAMINOPHEN < 5 ug/ml (10-30); SALICYLATE < 0.2 mg/dL (2.8-20.0)
[2019-02-10 21:16] LABS: ALCOHOL, BLOOD < 3 mg/dL (0-0)
[2019-02-10] MEDS ORDERED: INSULIN REGULAR, HUMAN 100 UNIT/ML 10 ML VIAL SQ ONE (21:30)
[2019-02-10] MEDS ORDERED: INSULIN REGULAR, HUMAN 100 UNIT/ML 10 ML VIAL ONE (21:31)
--- NOTE | 2019-02-10 22:02 | NUR ---
CALLED ART FOR PSYCH EVAL, LEFT MESSAGE ON VOICEMAIL.
--- NOTE | 2019-02-10 22:04 | NUR ---
RECEIVED CALL BACK FROM ART, SEAFOOD PREPARER, ETA WITHIN THE HOUR.
[2019-02-10 22:30] LABS: APPEARANCE,URINE Clear (CLEAR); BILIRUBIN,URINE Negative (NEGATIVE); BLOOD, URINE Small Ery/uL (NEGATIVE); COLOR,URINE Yellow (YELLOW); KETONES,URINE Trace (NEGATIVE); LEUKOCYTE ESTERASE ,URINE Negative (NEGATIVE); NITRITE, URINE Negative (NEGATIVE); PROTEIN,URINE Negative (NEGATIVE); UGLUCOSE 500 MG/DL mg/dL (NEGATIVE)
--- NOTE | 2019-02-10 22:56 | NUR ---
ART FROM CRISIS TEAM AT THE BED SIDE
[2019-02-10 23:15] LABS: BACTERIA,URINE Few /HPF (None Seen); SQUAMOUS EPITHELIAL CELL,UR Rare /HPF (None Seen)
--- NOTE | 2019-02-11 00:29 | NUR ---
PT IS SITTING ON A CHAIR REPORTED WILLING TO LEAVE AND WILL GO TO HIS DAUGHTER
--- NOTE | 2019-02-11 00:42 | NUR ---
Patient discharged to home in stable condition. Written and verbal after care instructions given. Patient verbalizes understanding of instruction. provided w/ snacks. pt will go to his dtr's house.
--- NOTE | 2019-02-11 00:45 | NUR ---
. Patient given list of available shelters in surrounding area and other resources,
[2019-02-11 00:46] VITALS: BP 129/78
== END 2019-02-11 00:46 | disposition home or self-care (01) ==
LOC: ER 19:51
DX: F32.9 Major depressive disorder, single episode, unspecified (principal); E11.9 Type 2 diabetes mellitus without complications; I10 Essential (primary) hypertension; E78.5 Hyperlipidemia, unspecified; M54.30 Sciatica, unspecified side; Z60.2 Problems related to living alone; Z79.4 Long term (current) use of insulin; Z79.899 Other long term (current) drug therapy
CPT/HCPCS: 36415; 80048; 80076; 80305; 80307; 80329; 81001; 82962; 85025; 87086; 96372; 99284; G0480; J1815; 81000-TC

== ENCOUNTER 2020-07-11 09:44 | Emergency (ER) | payer MEDICARE, OTHER ==
[~2020-07-11] VITALS: Ht 170.2 cm; Wt 79.4 kg
[2020-07-11 09:54] VITALS: BP 128/73
--- NOTE | 2020-07-11 09:55 | NUR ---
PT BIB SELF C/O BILATERAL KNEE PAIN FOR 3 DAYS. DENIES INJURY. VS CHECKED. AWAITING MD WALTERS.
[2020-07-11] MEDS ORDERED: KETOROLAC TROMETHAMINE INJ 30 MG/ML VIAL ONE (10:06)
[2020-07-11] MEDS ORDERED: KETOROLAC TROMETHAMINE INJ 30 MG/ML VIAL IM ONE (10:30)
--- NOTE | 2020-07-11 10:37 | NUR ---
Patient discharged to home in stable condition. Written and verbal after care instructions given. Patient verbalizes understanding of instruction.
== END 2020-07-11 10:38 | disposition home or self-care (01) ==
LOC: ER 09:51
DX: M13.862 Other specified arthritis, left knee (principal); M13.861 Other specified arthritis, right knee; I10 Essential (primary) hypertension; E78.5 Hyperlipidemia, unspecified; E11.9 Type 2 diabetes mellitus without complications; Z60.2 Problems related to living alone; Z79.4 Long term (current) use of insulin; Z79.899 Other long term (current) drug therapy
CPT/HCPCS: 73564 ×2; 96372; 99283; J1885

== ENCOUNTER 2020-07-18 11:28 | Emergency (ER) | payer MEDICARE, OTHER ==
[~2020-07-18] VITALS: Ht 172.7 cm; Wt 79.4 kg
--- NOTE | 2020-07-18 11:40 | NUR ---
c/o right knee pain and abrasion s/p tripped and fall 10/10 pain scale. Patient a/ox4, breathing even and unlabored, no sob noted. Needs attended. Kept comfortable.
[2020-07-18] MEDS ORDERED: ACETAMINOPHEN 325 MG TABLET ONE (11:59)
[2020-07-18] MEDS ORDERED: ACETAMINOPHEN 325 MG TABLET PO ONE (12:00)
--- NOTE | 2020-07-18 12:02 | NUR ---
SHOT DROPPER AT BEDSIDE FOR XRAYS.
--- NOTE | 2020-07-18 12:58 | NUR ---
Patient a/ox4, breathing even and unlabored, no sob noted. Ambulatory with walker. Patient discharged to home in stable condition. Written and verbal after care instructions given. Patient verbalizes understanding of instruction.
[2020-07-18 12:59] VITALS: BP 134/79
== END 2020-07-18 13:00 | disposition home or self-care (01) ==
LOC: ER 11:33
DX: S90.01XA Contusion of right ankle, initial encounter (principal); E78.5 Hyperlipidemia, unspecified; I10 Essential (primary) hypertension; E11.9 Type 2 diabetes mellitus without complications; Z60.2 Problems related to living alone; Z79.899 Other long term (current) drug therapy; W01.0XXA Fall on same level from slipping, tripping and stumbling without subsequent striking against object, initial encounter; Y93.89 Activity, other specified; Y92.89 Other specified places as the place of occurrence of the external cause; Y99.8 Other external cause status
CPT/HCPCS: 73502; 73564-TC

== ENCOUNTER 2022-10-10 16:40 | Inpatient (IN) | payer MEDICARE, OTHER ==
[~2022-10-10] VITALS: Ht 172.7 cm; Wt 69.4 kg
--- NOTE | 2022-10-10 17:05 | NUR ---
BIB RA 839 IN A SITTING POSITION,CHRONIC BILATERAL LEG PAIN GOT WORSE S/p GLF WHEN HE PASSED OUT THIS MORNING BECAUSE HE WAS HUNGRY,RI=[id number]
--- NOTE | 2022-10-10 17:10 | NUR ---
ESTABLISHED IV LINE LEFT AC 20 G
[2022-10-10] MEDS ORDERED: HEPARIN INFUSION/D5W 500 ML IV PRN ×2 (19:30→21:00)
[2022-10-10 19:36] LABS: CALCIUM, SERUM 8.9 mg/dL (8.5-10.1); CARBON DIOXIDE 21 mmol/L (21-32); CHLORIDE 106 mmol/L (98-107); CREATININE 2.5 mg/dL (0.6-1.3); GLUCOSE 123 mg/dL (74-106); SODIUM SERUM 138 mmol/L (136-145); UREA NITROGEN, BLOOD 46 mg/dL (7-18)
--- NOTE | 2022-10-10 19:37 | NUR ---
COVID SWAB SENT TO LAB
--- NOTE | 2022-10-10 20:29 | NUR ---
RECEIVED PT IN ER BED 1, PT IS ALERT AND ORIENTED. RR EVEN AND NONLABORED. CONNECTED TO MONITOR. VSS. FOOD AND DRINK PROVIDED. WILL CONTINUE TO MONITOR
[2022-10-10 20:30] LABS: BASOPHILS # (AUTO) 0.1 K/uL (0.0-0.2); BASOPHILS % (AUTO) 0.9 % (0.0-2.0); EOSINOPHILS % (AUTO) 1.6 % (0.0-6.0); HEMATOCRIT 34 % (39-51); HEMOGLOBIN 11.3 g/dL (13.5-17.5); LYMPHOCYTES # (AUTO) 1.7 K/uL (0.8-4.8); LYMPHOCYTES % (AUTO) 17.1 % (20.0-44.0); MEAN CORPUSCULAR HGB CONC 33 g/dl (31.0-36.0); MEAN CORPUSCULAR VOLUME 87 fL (80-96); MONOCYTES # (AUTO) 0.9 K/uL (0.1-1.30); MONOCYTES % (AUTO) 8.6 % (2.0-12.0); NEUTROPHILS # (AUTO) 7.3 K/uL (1.8-8.9); NEUTROPHILS % (AUTO) 71.8 % (43.0-81.0); PLATELET COUNT (AUTO) 219 K/uL (150-450); RED BLOOD CELL COUNT(AUTO) 3.96 MIL/uL (4.5-6.0); WHITE BLOOD COUNT (AUTO) 10.2 K/uL (4.3-11.0)
[2022-10-10] MEDS ORDERED: HYDROCODONE/APAP 5/325MG TABLET PO PRN (21:00)
[2022-10-10] MEDS ORDERED: HEPARIN SODIUM, PORCINE 5000 UNITS/1 ML VIAL IV ONE (21:00)
[2022-10-10] MEDS ORDERED: ONDANSETRON HCL/PF 4 MG/2 ML VIAL IVP PRN (21:00)
[2022-10-10] MEDS ORDERED: Z GUARD REMEDY 4 OZ OINT TP PRN (21:00)
--- NOTE | 2022-10-10 21:11 | NUR ---
REPORT GIVEN TO ROWENA KEITH FOR COLE
--- NOTE | 2022-10-10 21:18 | NUR ---
RECEIVED REPORT FROM INNA CARRIZALES FROM .
--- NOTE | 2022-10-10 21:23 | NUR ---
SPEED RUNNER NOTES, PT TRANSFERRED TO [facility] VIA GURNEY. PLACED IN ROOM 118, BED 1. PT AWAKE, ALERT/ORIENTED X4 AND VERBALLY RESPONSIVE. FAROESE SPEAKING ONLY. ON ROOM AIR AND PT TOLERATED WELL. O2 SAT 99%. IV ACCESS ON LAC#20G INTACT AND PATENT. NO S/S OF INFILTRATIONS. NO C/O PAIN OR DISCOMFORT. NO ACUTE DISTRESS. BODY ASSESSMENT DONE. NO SKIN DISCOLORATION OR OPEN SKIN NOTED ANY PART OF THE BODY. ALL SAFETY MEASURES IN PLACE. BED IN LOWEST POSITION AND LOCKED. SIDE RAILS UP X 2, PLACE CALL LIGHT WITH IN REACH. WILL CONTINUE TO MONITOR
--- NOTE | 2022-10-10 21:43 | NUR ---
PT TRANSFERRED TO [facility] , ACLS PROTOCOLS
--- NOTE | 2022-10-10 21:50 | NUR ---
RN NOTES: HEPARIN BOLUS GIVEN BY ER NURSE. STARTED HEPARIN DRIP 1250 UNITS/HR. PT-10.9, INR-1.04, APTT-28.5. WILL CONTINUE TO MONITOR
[2022-10-11] VITALS (7 sets, daily range): BP systolic 127–155; BP diastolic 70–89
[2022-10-11] MEDS ORDERED: DEXTROSE 50%-WATER 50 ML DISP.SYRIN IV PRN
[2022-10-11] MEDS ORDERED: TRAMADOL HCL 50 MG TABLET PO PRN
[2022-10-11] MEDS ORDERED: ACETAMINOPHEN 325 MG TABLET PO PRN
--- NOTE | 2022-10-11 00:34 | NUR ---
RN NOTES: CALLED PHARMACY TO FIND OUT IF POSSIBLE TO RUN HEPARIN DRIP AND IV NS ON THE SAME LINE. TALKED TO HIRAL. MENTIONED CAN'T RUN IV FLUID AND HEPARIN TOGETHER ON THE SAME LINE. TRIED TO INSERT ANOTHER SALINE LOCK BUT PT STRONGLY REFUSED TO INSERT ANOTHER LINE. OFFERED SEVERAL TIMES BUT STILL REFUSED. NOTIFIED LEIGHTON JARAMILLO. ORDER TO RUN THE HEPARIN DRIP ON EXITING LINE AND ORDER TO GET MIDLINE AND RUN IV FLUID IN MIDLINE. ORDER NOTED AND CARRIED OUT.
--- NOTE | 2022-10-11 04:08 | NUR ---
RN NOTES: LAB CAME TO DO THE PPT AND OTHER MORNING LABS. PT STRONGLY REFUSED. OFFERED SEVERAL TIMES BUT STILL REFUSED. STARTED CURSING, SAYING BAD WORDS TO NURSING STAFF MEMBERS. NOTIFIED Chandni JARAMILLO MENTIONED, KEEP TRYING. TOLD ME TO LET THE LAB TO COME AFTER ONE HOUR.
--- NOTE | 2022-10-11 04:46 | NUR ---
RN NOTES: EXPLAINED PT THE RISKS AND BENEFITS WITH HUNGARIAN SPEAKING NURSE BUT PT STILL REFUSED TO DO THE BLOOD WORK. GOT REALLY UPSET, AGAIN STARTED CURSING. JOSÉ CASTILLO. WILL CONTINUE TO TRY.
--- NOTE | 2022-10-11 05:50 | NUR ---
RN NOTES: PT STILL REFUSING TO DO THE LAB WORK. PER DR. MANZANARES, JOSÉ WILL CONTINUE TRY TO ENCOURAGE HIM TO DO LAB WORKS. HEPARIN DRIP CONTINUE WITH THE SAME DOSE 1250UNITS/HR. WILL CONTINUE TO MONITOR
--- NOTE | 2022-10-11 06:55 | NUR ---
RN CLOSING NOTES, PT AWAKE, ALERT/ORIENTED X4 AND VERBALLY RESPONSIVE. ON ROOM AIR AND PT TOLERATED WELL. O2 SAT 99%. IV ACCESS ON LAC#20G INTACT AND PATENT. NO S/S OF INFILTRATIONS. HEPARIN DRIP RUNNING AT 1250UNITS/HR. NO C/O PAIN OR DISCOMFORT. NO ACUTE DISTRESS. LAB WAS ABLE TO DRAW ALL BLOOD WORKS. PT WAS COOPERATIVE AT THIS MOMENT. ALL SAFETY MEASURES IN PLACE. BED IN LOWEST POSITION AND LOCKED. SIDE RAILS UP X 2, PLACE CALL LIGHT WITH IN REACH. WILL ENDORSE TO MORNING SHIFT NURSE.
--- NOTE | 2022-10-11 07:13 | NUR ---
RN OPENING NOTES PATIENT RECEIVED AT BEDSIDE, AWAKE, ALERT/ORIENTED X4 AND VERBALLY RESPONSIVE. CAMEROONIAN SPEAKING ONLY. ON ROOM AIR O2 SAT 99%, WITH NO SIGNS OF DISTRESS. IV ACCESS ON LAC#20G INTACT AND PATENT. NO S/S OF INFILTRATIONS. NO C/O PAIN OR DISCOMFORT. ALL SAFETY MEASURES IN PLACE. BED IN LOWEST POSITION AND LOCKED. SIDE RAILS UP X 2, PLACE CALL LIGHT WITH IN REACH. WILL CONTINUE TO MONITOR
[2022-10-11 07:20] LABS: BASOPHILS # (AUTO) 0.1 K/uL (0.0-0.2); BASOPHILS % (AUTO) 0.7 % (0.0-2.0); EOSINOPHILS % (AUTO) 3.5 % (0.0-6.0); HEMATOCRIT 34 % (39-51); HEMOGLOBIN 11.5 g/dL (13.5-17.5); LYMPHOCYTES # (AUTO) 2.4 K/uL (0.8-4.8); LYMPHOCYTES % (AUTO) 28.3 % (20.0-44.0); MEAN CORPUSCULAR HGB CONC 34 g/dl (31.0-36.0); MEAN CORPUSCULAR VOLUME 88 fL (80-96); MONOCYTES # (AUTO) 0.8 K/uL (0.1-1.30); MONOCYTES % (AUTO) 9.3 % (2.0-12.0); NEUTROPHILS # (AUTO) 4.9 K/uL (1.8-8.9); NEUTROPHILS % (AUTO) 58.2 % (43.0-81.0); PLATELET COUNT (AUTO) 221 K/uL (150-450); RED BLOOD CELL COUNT(AUTO) 3.86 MIL/uL (4.5-6.0); WHITE BLOOD COUNT (AUTO) 8.4 K/uL (4.3-11.0)
--- NOTE | 2022-10-11 07:25 | NUR ---
WOUND CARE CONSULT: RECEIVED CONSULT REQUESTING PODIATRY CONSULT. PT NOTED TO HAVE INTACT SACRAL AREA WITH SCARRING AND LEFT FOOT DEFORMITY WITH SCARRING AND TENDERNESS, PRESENT ON ADMISSION. PT IS INDEPENDENT WITH BED MOBILITY AND IS CONTINENT AT THIS TIME. PODIATRY CONSULT TO BE CALLED THIS AM. IN AGREEMENT WITH PLAN OF CARE.
[2022-10-11 07:55] LABS: CARBON DIOXIDE 25 mmol/L (21-32); CHLORIDE 106 mmol/L (98-107); CREATININE 2.5 mg/dL (0.6-1.3); GLUCOSE 127 mg/dL (74-106); MAGNESIUM 1.9 mg/dL (1.8-2.4); PHOSPHORUS 4.2 mg/dL (2.5-4.9); POTASSIUM 4.3 mmol/L (3.5-5.1); SODIUM SERUM 139 mmol/L (136-145); UREA NITROGEN, BLOOD 45 mg/dL (7-18)
[2022-10-11 08:11] LABS: THYROID STIMULATING HORMONE 0.544 uIU/mL (0.358-3.74)
[2022-10-11] MEDS: BLOOD SUGAR DIAGNOSTIC 1 EACH STRIP IN SCH ×4 (08:19→21:46)
[2022-10-11] MEDS: GABAPENTIN 300 MG CAPSULE PO SCH ×3 (08:19→16:19)
[2022-10-11] MEDS: PANTOPRAZOLE 40 MG TABLET.DR PO SCH (08:19)
[2022-10-11] MEDS: INSULIN REGULAR, HUMAN 100 UNIT/ML 3 ML VIAL SQ PRN ×4 (08:20→21:46)
--- NOTE | 2022-10-11 08:30 | NUR ---
RN NOTE RECEIVED CRITICAL PTT 163.[address] MARIEE RECEIVED ORDER TO HOLD INFUSION. ORDERS FOLLOWED
[2022-10-11] MEDS: ACETAMINOPHEN 325 MG TABLET PO PRN (12:12)
--- NOTE | 2022-10-11 14:00 | NUR ---
RN NOTE RECEIVED PTT 30.[address] MARIEE RESUME HEPARIN DRIP. DRIP RESUMED 1522UNITS/HR
--- NOTE | 2022-10-11 17:18 | NUR ---
RN NOTE PER DR JAYLENE VASQUEZ HEPARIN ORDERS FOLLOWED
[2022-10-11] MEDS: POLYETHYLENE GLYCOL 3350 17 GM POWD.PACK PO PRN (17:26)
[2022-10-11] MEDS: IV NS 0.9% 1,000 ML IV PRN (17:38)
--- NOTE | 2022-10-11 18:32 | NUR ---
RN CLOSING NOTES PT IN BED RESTING/SLEEPING. ON ROOM AIR, MIDLINE LEXI 18G AND R LAC#20G INTACT AND PATENT. NO S/S OF INFILTRATIONS. NO C/O PAIN OR DISCOMFORT. NO ACUTE DISTRESS. ALL SAFETY MEASURES IN PLACE. BED IN LOWEST POSITION AND LOCKED. SIDE RAILS UP X 2, PLACE CALL LIGHT WITH IN REACH. WILL ENDORSE TO SUPERVISOR ASSEMBLY STOCK NURSE.
--- NOTE | 2022-10-11 19:45 | NUR ---
RN NOTE INFORMED PT WE NEED A URINE SAMPLE FROM HIM FOR HIS URINALYSIS. PT SAID HE WILL LET ME KNOW WHEN HE IS READY TO GIVE ONE. WILL F/U WITH PT.
--- NOTE | 2022-10-11 21:33 | NUR ---
RN OPENING NOTE PATIENT RECEIVED AT BEDSIDE, AWAKE, ALERT/ORIENTED X4 AND VERBALLY RESPONSIVE, JAPANESE SPEAKING ONLY. CURRENTLY ON ROOM AIR, TOLERATING WELL SATING @ 100%, WITH NO S/SX OF ACUTE RESPI DISTRESS NOTED. NO SOB. BREATHING IS EVEN AND UNLABORED. UTILITY MECHANIC READS SB HR 50s. IV ACCESS ON LAC#20G AND LEXI ML, BOTH INTACT AND PATENT. NS @ 50 CC/HR CURRENTLY INFUSING. ALL SAFETY MEASURES IN PLACE: BED IN LOWEST POSITION AND LOCKED. BED ALARM ON. SIDE RAILS UP X 2, CALL LIGHT WITHIN REACH. WILL CONTINUE TO MONITOR PT.
[2022-10-11] MEDS: ATORVASTATIN 10 MG TABLET PO SCH (22:03)
--- NOTE | 2022-10-11 22:45 | NUR ---
RN NOTE PT STILL SLEEPING. NO URINE SAMPLE OBTAINED YET. WILL F/U SOON PT WAKES UP.
[2022-10-11] MEDS: INSULIN GLARGINE, 100 UNIT/ML CARTRIDGE SQ SCH (22:52)
[2022-10-12] VITALS (7 sets, daily range): BP systolic 135–150; BP diastolic 66–80
--- NOTE | 2022-10-12 06:36 | NUR ---
RN NOTE URINE SAMPLE TAKEN. LAB NOTIFIED TO TACTICAL DEBRIEFER OFFICER.
--- NOTE | 2022-10-12 06:36 | NUR ---
RN NOTE NO SIGNIFICANT CHANGE T/O THE NIGHT. ALL DUE MEDS GIVEN. NEEDS MET. TURNED AND REPOSITIONED. WILL ENDORSE TO AM SHIFT NURSE FOR COLE.
[2022-10-12 06:48] LABS: BASOPHILS % (AUTO) 0.7 % (0.0-2.0); EOSINOPHILS % (AUTO) 4.1 % (0.0-6.0); HEMATOCRIT 34 % (39-51); HEMOGLOBIN 11.4 g/dL (13.5-17.5); LYMPHOCYTES % (AUTO) 29.6 % (20.0-44.0); MEAN CORPUSCULAR HGB CONC 33 g/dl (31.0-36.0); MEAN CORPUSCULAR VOLUME 88 fL (80-96); MONOCYTES # (AUTO) 0.6 K/uL (0.1-1.30); MONOCYTES % (AUTO) 8.8 % (2.0-12.0); NEUTROPHILS # (AUTO) 3.9 K/uL (1.8-8.9); NEUTROPHILS % (AUTO) 56.8 % (43.0-81.0); PLATELET COUNT (AUTO) 197 K/uL (150-450); WHITE BLOOD COUNT (AUTO) 6.8 K/uL (4.3-11.0)
[2022-10-12 07:03] LABS: BILIRUBIN,URINE NEGATIVE (NEGATIVE); COLOR,URINE YELLOW (YELLOW); LEUKOCYTE ESTERASE ,URINE NEGATIVE (NEGATIVE); NITRITE, URINE NEGATIVE (NEGATIVE); PH,URINE 5.5 (5.0-8.0); PROTEIN,URINE TRACE mg/dl (NEGATIVE); UGLUCOSE NEGATIVE (NEGATIVE); UROBILINOGEN,URINE 0.2 EU/dL (0.2)
--- NOTE | 2022-10-12 07:05 | NUR ---
RN OPENING NOTE PATIENT IN BED, AWAKE, ALERT/ORIENTED X4 AND VERBALLY RESPONSIVE, CROATIAN SPEAKING ONLY. CURRENTLY ON ROOM AIR, TOLERATING WELL SATING @ 100%, WITH NO S/SX OF ACUTE RESPI DISTRESS NOTED. NO SOB. BREATHING IS EVEN AND UNLABORED. GEOSPATIAL TECHNICIAN READS SB HR 59. IV ACCESS ON LAC#20G AND LEXI ML, BOTH INTACT AND PATENT. NS @ 50 CC/HR CURRENTLY INFUSING. ALL SAFETY MEASURES IN PLACE: BED IN LOWEST POSITION AND LOCKED. BED ALARM ON. SIDE RAILS UP X 2, CALL LIGHT WITHIN REACH. WILL CONTINUE TO MONITOR P
[2022-10-12 07:06] LABS: BACTERIA,URINE Rare /HPF (None Seen); SQUAMOUS EPITHELIAL CELL,UR Few /HPF (None Seen); WBC,URINE 0-2 /HPF (0-3)
[2022-10-12 07:25] LABS: CALCIUM, SERUM 8.8 mg/dL (8.5-10.1); CARBON DIOXIDE 22 mmol/L (21-32); CHLORIDE 108 mmol/L (98-107); CREATININE 2.3 mg/dL (0.6-1.3); GLUCOSE 128 mg/dL (74-106); PHOSPHORUS 4.3 mg/dL (2.5-4.9); POTASSIUM 4.3 mmol/L (3.5-5.1); SODIUM SERUM 139 mmol/L (136-145); UREA NITROGEN, BLOOD 42 mg/dL (7-18)
[2022-10-12] MEDS: BLOOD SUGAR DIAGNOSTIC 1 EACH STRIP IN SCH ×4 (07:38→22:05)
[2022-10-12] MEDS: PANTOPRAZOLE 40 MG TABLET.DR PO SCH (07:38)
[2022-10-12] MEDS: GABAPENTIN 300 MG CAPSULE PO SCH ×3 (08:15→16:12)
[2022-10-12] MEDS: ASPIRIN 81 MG TAB.CHEW PO SCH (10:01)
--- NOTE | 2022-10-12 12:00 | NUR ---
RN NOTES: PT REFUSED VITAL SIGNS CHECK, EXPLAINED RISK AND BENEFITS STILL REFUSES
[2022-10-12] MEDS: INSULIN REGULAR, HUMAN 100 UNIT/ML 3 ML VIAL SQ PRN ×2 (12:12→22:10)
--- NOTE | 2022-10-12 15:07 | NUR ---
SS consult: SS Consult requested for homelessness. The pt. is a 82-year-old male pt. who was admitted to Med Surg for acute arterial occlusion of LE, SAPPHIRE per EMR. Upon SS consult, the pt. is Alert & Oriented x 4 and makes good eye contact. The pt. appears well-groomed. Pt. has euthymic mood & affect. Pt. has loud speech and normal thought process. Pt. was calm & cooperative throughout interview. The pt. denies current SI/HI and denies current hallucinations. SW explored pt.s mental health Hx. Pt. denies any Hx. of mental health. SW explored pt.s living situation, Pt. states he has been experiencing homelessness for some a long time. SW explored pt.s drug & ETOH use. Pt. states he has never used drug or alcohol. Per pt. he is ambulatory with a cane or walker and independent with most of his ADLs. Pt. states he receives EBT. Pt. states he is not in communication with his family. Sometimes he stays with a friend in her car. Plan: JANUSZ was notified by CM and pt.s nurse that CM is working on SNF placement and pt. is agreeable to SNF placement, see CM notes for details. JANUSZ also provided pt. with resources for homelessness: shelters, hot meals, showers, mental health clinics etc. Pt. accepted resources and pt. signed homeless waiver which was placed in the pt.s chart. Winter [facility] list : [facility]; AB Adult WSP site; LARS Adult WSP site; and WFD Adult WSP site; instruction to call 211 for availability. Year-round shelters: [facility] [address] [place], [place] [phone] ; [facility] [address] [place] [address]; [facility] [facility]. [facility] [address] Hygiene: [facility]: [address] [address] ; [facility] [address] [facility] ; [facility] [address] Jerel Peoples . Food Resources: [place] [facility] at [facility]- [address] [place]; Meet Each Need with Dignity ([facility]) [address] [place]; [facility] [address] [facility]; [facility] 2946 [facility]. Mental Health resources provided: [facility] [address] [place], [place] [address] ; [facility] [address], [place], [place] [phone] ; [facility] [address] [facility] [place], [place] [phone] ; [facility] [address] [place], [place] [address] Healthcare Clinics: [facility] [address] [facility], [address] [place]. [place] ; [facility] [address] [place] [address]; [facility] [address] [place] [phone]) [phone] Counseling--Outpatient [facility] [address], [address] [place], [place] [address] (Specializes in in-depth psychotherapy for emotional distress: anxiety, depression, interpersonal conflicts, life transitions, childhood abuse) [facility] [address] [place] [address] (Assist with solving problem marital difficulties, separation & divorce, aging parents, & grief, chronic & terminal illness) [facility] [address] [place] [address] (Deal with loss & grief, anxiety, marital difficulties) Homebound/Mental Health Services [address] [facility] [place], [place] [address] (Provide in-home mental services to people who are incapable of leaving their homes) [facility] [address] [place] [address] [facility] [address]. [facility] [place] [address] PSYCHIATRIC OUTPATIENT SERVICES [facility] Partial Hospitalization and Intensive Outpatient Program (Managed Care and [place] Only)[address] [facility] [phone] [facility] Partial Hospitalization and Outpatient [address] [place], [place] [phone] [facility] [place] Lpt[address] [facility]. [address] [place], [place] [phone] [facility] Partial Hospitalization and Outpatient Ydcjehr03880 [facility] Jerel Barreto, [phone] Substance Abuse resources provided included: [facility] Substance Abuse Self-Helpline ([facility]) ; [facility] [address] [facility]. [place] [phone] ; [facility] [address] [facility] [address] ; [facility] [address] [facility] [phone] ; [facility] [address] [facility] [phone] ; [facility] 4940 [facility] [phone] ; [facility] [address]09 [facility], [facility] [phone] ; [facility] Substance Abuse Helpline([facility] ; [facility] ; [facility] [place]; [facility] [place]; [facility] [place]; [facility] Jerel Barreto; [facility] [place]; [facility] [place]; [facility] [place]; [facility], [facility]. [place]; Alcoholics Anonymous -[facility]; Ue-Zkvw-Xkjyspy ; Marijuana Anonymous [facility]; Narcotics Anonymous www.na.org;
[2022-10-12] MEDS: IV NS 0.9% 1,000 ML IV PRN (15:17)
[2022-10-12] MEDS: ACETAMINOPHEN 325 MG TABLET PO PRN (16:33)
--- NOTE | 2022-10-12 19:00 | NUR ---
INSPECTOR ALUMINUM BOAT OPENING NOTE PATIENT IS EATING IN HIS BED. HE IS [place] SPEAKING, BUT ABLE TO UNDERSTAND SIMPLE CITIZEN OF [place]. PT IS ALERT AND ORIENTED, AO X 4. HE IS ON RA, TOLERATED WELL. NO S/S OF DISTRESS OR SOB. PATIENT IS ON EXTERNAL RADIO RECORDER, ON THE MONITOR, HIS HEART RHYTHM IS SR WITH PVCS; AND HIS HEART RATE IS AT 70s. PATIENT HAS TWO IV ACCESS: ONE IS AT HIS LEXI ML, #18G; RUNNING NS @ 50 ML/HR. ANOTHER ONE IS AT HIS L AC, #20G. BOTH SITES ARE PATENT AND INTACT. SAFETY MEASURES ARE IN PLACED: BED IN LOWEST AND LOCKED POSITION; SIDE RAILS UP X 2; CALL LIGHT AND TABLE ARE WITHIN REACH. WILL CONTINUE MONITOR THE PATIENT AND PROVIDE THE CARE PATIENT NEEDS.
--- NOTE | 2022-10-12 19:00 | NUR ---
RN CLOSING NOTES PT IN BED RESTING/SLEEPING. ON ROOM AIR, MIDLINE LEXI 18G AND R LAC#20G INTACT AND PATENT. NO S/S OF INFILTRATIONS. NO C/O PAIN OR DISCOMFORT. NO ACUTE DISTRESS. ALL SAFETY MEASURES IN PLACE. BED IN LOWEST POSITION AND LOCKED. SIDE RAILS UP X 2, PLACE CALL LIGHT WITH IN REACH. WILL ENDORSE TO FACS TEACHER NURSE.
[2022-10-12] MEDS: ATORVASTATIN 10 MG TABLET PO SCH (22:00)
[2022-10-12] MEDS: INSULIN GLARGINE, 100 UNIT/ML CARTRIDGE SQ SCH (22:06)
[2022-10-13] VITALS: BP 139/75
[2022-10-13 04:00] VITALS: BP 118/82
[2022-10-13] MEDS: POLYETHYLENE GLYCOL 3350 17 GM POWD.PACK PO PRN (06:04)
--- NOTE | 2022-10-13 06:05 | NUR ---
PUBLIC HEALTH DENTIST NOTE PATIENT STATES THAT HE IS CONSTIPATED. PRN PO MEDICATION, MIRALAX, GIVEN TO THE PATIENT.
--- NOTE | 2022-10-13 06:50 | NUR ---
LABORER HEADING CLOSING NOTE PATIENT IS SLEEPING IN BED; EASILY BEING AROUSED. PT IS ALERT AND ORIENTED, AO X 4. HE IS ON RA, TOLERATED WELL. NO S/S OF DISTRESS OR SOB. PATIENT IS ON EXTERNAL INFRASTRUCTURE ENGINEER, ON THE MONITOR, HIS HEART RHYTHM IS SR WITH PVCS; AND HIS HEART RATE IS AT 70s. PATIENT HAS TWO IV ACCESS: ONE IS AT HIS LEXI ML, #18G; RUNNING NS @ 50 ML/HR. ANOTHER ONE IS AT HIS L AC, #20 G. BOTH SITES ARE PATENT AND INTACT. SAFETY MEASURES ARE IN PLACED: BED IN LOWEST AND LOCKED POSITION; SIDE RAILS UP X 2; CALL LIGHT AND TABLE ARE WITHIN REACH. WILL ENDORSE NEXT SHIFT NURSE FOR CONTINUING PATIENT CARE.
[2022-10-13 08:00] VITALS: BP 153/78
[2022-10-13] MEDS: BLOOD SUGAR DIAGNOSTIC 1 EACH STRIP IN SCH ×4 (09:45→21:46)
[2022-10-13] MEDS: PANTOPRAZOLE 40 MG TABLET.DR PO SCH (09:47)
[2022-10-13] MEDS: GABAPENTIN 300 MG CAPSULE PO SCH ×3 (09:47→17:54)
[2022-10-13] MEDS: ASPIRIN 81 MG TAB.CHEW PO SCH (09:47)
[2022-10-13] MEDS: INSULIN REGULAR, HUMAN 100 UNIT/ML 3 ML VIAL SQ PRN ×3 (09:54→21:48)
[2022-10-13] MEDS: IV NS 0.9% 1,000 ML IV PRN (13:11)
[2022-10-13 16:00] VITALS: BP 143/71
[2022-10-13 20:00] VITALS: BP 150/75
--- NOTE | 2022-10-13 20:00 | NUR ---
RN CLOSING NOTE PATIENT IS SLEEPING IN BED; EASILY BEING AROUSED. PT IS ALERT AND ORIENTED, AO X 4. HE IS ON RA, TOLERATED WELL. NO S/S OF DISTRESS OR SOB. LEXI IV #18G RUNNING NS @ 50 ML/HR. ALL SAFETY MEASURES ARE IN PLACED: BED IN LOWEST AND LOCKED POSITION; SIDE RAILS UP X 2; CALL LIGHT AND TABLE ARE WITHIN REACH. WILL ENDORSE NEXT SHIFT NURSE FOR CONTINUING PATIENT CARE
[2022-10-13] MEDS: ATORVASTATIN 10 MG TABLET PO SCH (22:01)
[2022-10-13] MEDS: INSULIN GLARGINE, 100 UNIT/ML CARTRIDGE SQ SCH (22:02)
--- NOTE | 2022-10-14 03:00 | NUR ---
Pt.awake and getting out of bed to use urinal, encouraged to stay in bed and use urinal but insisted and stood at side of bed and used urinal, gait very unstable.
[2022-10-14 07:20] LABS: CARBON DIOXIDE 24 mmol/L (21-32); CHLORIDE 107 mmol/L (98-107); CREATININE 2.1 mg/dL (0.6-1.3); GLUCOSE 141 mg/dL (74-106); SODIUM SERUM 139 mmol/L (136-145); UREA NITROGEN, BLOOD 38 mg/dL (7-18)
--- NOTE | 2022-10-14 07:20 | NUR ---
shift report report given to Faiza chart reviewed yes sbar given yes
[2022-10-14] MEDS: BLOOD SUGAR DIAGNOSTIC 1 EACH STRIP IN SCH ×2 (07:49→12:18)
[2022-10-14] MEDS: ASPIRIN 81 MG TAB.CHEW PO SCH (07:50)
[2022-10-14] MEDS: PANTOPRAZOLE 40 MG TABLET.DR PO SCH (07:50)
[2022-10-14] MEDS: GABAPENTIN 300 MG CAPSULE PO SCH (07:50)
[2022-10-14 08:00] VITALS: BP 177/79
[2022-10-14] MEDS: INSULIN REGULAR, HUMAN 100 UNIT/ML 3 ML VIAL SQ PRN (08:38)
[2022-10-14] MEDS: IV NS 0.9% 1,000 ML IV PRN (10:06)
[2022-10-14] MEDS ORDERED: AMLO-212 PO (11:42)
[2022-10-14] MEDS ORDERED: AMLODIPINE BESYLATE 5 MG TABLET PO SCH (12:00)
--- NOTE | 2022-10-14 12:55 | NUR ---
RN NOTE CALLED [facility] [phone] AND GAVE REPORT TO INNA BRAVO.
--- NOTE | 2022-10-14 13:30 | NUR ---
RN NOTE PATIENT DISCHARGED TO [facility]IA [facility]BULANCE CREW. ID BAND, IV ACCESS ALL REMOVED, NO S/S OF BLEEDING NOTED. PATIENT IN STABLE CONDITION, SIGNED DISCHARGE PACKET AND BELONGINGS LIST ACCOUNTED FOR. CHARGE NURSE AWARE.
== END 2022-10-14 15:36 | DRG 299 ==
LOC: ER 16:45 → TELE1 20:52 → MEDSG1 10-13 11:45
PROVIDERS: ADMIT Registered Nurse; ATTEND Nurse Practitioner Family
PROC: 05HA33Z Insertion of Infusion Device into Left Brachial Vein, Percutaneous Approach (ICD-10-PCS; principal; 2022-10-11)
DX: E11.51 Type 2 diabetes mellitus with diabetic peripheral angiopathy without gangrene (principal); N17.0 Acute kidney failure with tubular necrosis; I70.92 Chronic total occlusion of artery of the extremities; M84.475A Pathological fracture, left foot, initial encounter for fracture; J98.11 Atelectasis; I77.1 Stricture of artery; Z20.822 Contact with and (suspected) exposure to COVID-19; R26.9 Unspecified abnormalities of gait and mobility; E78.5 Hyperlipidemia, unspecified; M54.30 Sciatica, unspecified side; Z79.4 Long term (current) use of insulin; Z79.02 Long term (current) use of antithrombotics/antiplatelets; Z79.899 Other long term (current) drug therapy; R29.6 Repeated falls; D64.9 Anemia, unspecified; E78.00 Pure hypercholesterolemia, unspecified; G89.29 Other chronic pain; M20.42 Other hammer toe(s) (acquired), left foot; M20.41 Other hammer toe(s) (acquired), right foot; E86.1 Hypovolemia; Z91.199 Patient's noncompliance with other medical treatment and regimen due to unspecified reason; R42 Dizziness and giddiness; E11.22 Type 2 diabetes mellitus with diabetic chronic kidney disease; I12.9 Hypertensive chronic kidney disease with stage 1 through stage 4 chronic kidney disease, or unspecified chronic kidney disease; N18.9 Chronic kidney disease, unspecified; W19.XXXA Unspecified fall, initial encounter; Y92.9 Unspecified place or not applicable
CPT/HCPCS: 36415; 70450-TC; 71045-TC; 73630-TC; 76770-TC; 80048-TC; 81001; 82962-TC; 83735-TC; 84100-TC; 84443-TC; 84484-TC; 85025-TC; 85730-TC; 87081-TC; 93307-TC; 93926-TC; 97112-TC; 97116-TC; 97530-TC; A4223; G0378; J1644; J1815; J7030

== ENCOUNTER 2024-08-11 16:07 | Inpatient (IN) | payer MEDICAID, MEDICARE ==
[~2024-08-11] VITALS: Ht 165.1 cm; Wt 70.3 kg
[~2024-08-11 16:07] MED LIST changes: +AMLO-212 PO
[2024-08-11 17:16] LABS: BASOPHILS # (AUTO) 0.1 K/uL (0.0-0.2); EOSINOPHILS # (AUTO) 0.2 K/uL (0.0-0.7); EOSINOPHILS % (AUTO) 2.8 % (0.0-6.0); HEMATOCRIT 39 % (39-51); HEMOGLOBIN 13.1 g/dL (13.5-17.5); LYMPHOCYTES # (AUTO) 1.5 K/uL (0.8-4.8); LYMPHOCYTES % (AUTO) 22.3 % (20.0-44.0); MEAN CORPUSCULAR HEMOGLOBIN 30 PG (26.0-33.0); MEAN CORPUSCULAR HGB CONC 34 g/dl (31.0-36.0); MEAN CORPUSCULAR VOLUME 90 fL (80-96); MONOCYTES # (AUTO) 0.6 K/uL (0.1-1.30); MONOCYTES % (AUTO) 9.8 % (2.0-12.0); NEUTROPHILS # (AUTO) 4.2 K/uL (1.8-8.9); NEUTROPHILS % (AUTO) 64.1 % (43.0-81.0); PLATELET COUNT (AUTO) 180 K/uL (150-450); RED BLOOD CELL COUNT(AUTO) 4.32 MIL/uL (4.5-6.0); RED CELL DISTRIBUTION WIDTH 14.7 % (11.5-15.0); WHITE BLOOD COUNT (AUTO) 6.5 K/uL (4.3-11.0)
[2024-08-11 17:33] LABS: CALCIUM, SERUM 8.3 mg/dL (8.5-10.1); CARBON DIOXIDE 24 mmol/L (21-32); CHLORIDE 110 mmol/L (98-107); CREATININE 2.3 mg/dL (0.6-1.3); GLUCOSE 113 mg/dL (74-106); POTASSIUM 4.2 mmol/L (3.5-5.1); SODIUM SERUM 142 mmol/L (136-145); UREA NITROGEN, BLOOD 35 mg/dL (7-18)
[2024-08-11 17:46] LABS: ALANINE AMINOTRANSFERASE 13 U/L (12-78); ALBUMIN 3.2 g/dL (3.4-5.0); ALKALINE PHOSPHATASE 124 U/L (46-116); ASPARTATE AMINOTRANSFERASE 16 U/L (15-37); BILIRUBIN,DIRECT 0.1 mg/dL (0.0-0.2); BILIRUBIN,TOTAL 0.2 mg/dL (0.2-1.0); NT-PRO BNP 19049 pg/mL (0-125); TOTAL PROTEIN, SERUM 7.3 g/dL (6.4-8.2)
[2024-08-11] MEDS ORDERED: ASPIRIN 81 MG TAB.CHEW ONE (19:35)
[2024-08-11] MEDS: ASPIRIN 81 MG TAB.CHEW PO ONE (19:35)
[2024-08-11] MEDS: ASPIRIN EC 81 MG TABLET.DR PO ONE (21:00)
[2024-08-11] MEDS ORDERED: ACETAMINOPHEN 325 MG TABLET PO PRN (21:00)
[2024-08-11] MEDS ORDERED: MAG HYDROX/AL HYDROX/SIMETH 30 ML UDC PO PRN (21:00)
[2024-08-11] MEDS ORDERED: MECLIZINE HCL 25 MG TABLET PO PRN (21:00)
[2024-08-11] MEDS ORDERED: DEXTROSE 50%-WATER 50 ML DISP.SYRIN IV PRN (21:00)
[2024-08-11] MEDS ORDERED: MAGNESIUM HYDROXIDE 30 ML UDC PO PRN (21:00)
[2024-08-11] MEDS ORDERED: TRAMADOL HCL 50 MG TABLET PO PRN (21:00)
[2024-08-11] MEDS ORDERED: Z GUARD REMEDY 4 OZ OINT TP PRN (21:00)
[2024-08-11] MEDS ORDERED: ONDANSETRON HCL/PF 4 MG/2 ML VIAL IVP PRN (21:00)
[2024-08-11] MEDS ORDERED: ZOLPIDEM TARTRATE 5 MG TABLET PO PRN (21:00)
[2024-08-11] MEDS: INSULIN REGULAR, HUMAN 100 UNIT/ML 3 ML VIAL SQ PRN (22:30)
[2024-08-11] MEDS: BLOOD SUGAR DIAGNOSTIC 1 EACH STRIP IN SCH (22:34)
[2024-08-12 01:01] VITALS: BP 147/83; TEMP 98.1; O2SAT 98
[2024-08-12 08:17] LABS: BASOPHILS # (AUTO) 0.1 K/uL (0.0-0.2); BASOPHILS % (AUTO) 1.2 % (0.0-2.0); EOSINOPHILS # (AUTO) 0.3 K/uL (0.0-0.7); EOSINOPHILS % (AUTO) 4.1 % (0.0-6.0); HEMATOCRIT 40 % (39-51); HEMOGLOBIN 13.1 g/dL (13.5-17.5); LYMPHOCYTES # (AUTO) 1.8 K/uL (0.8-4.8); LYMPHOCYTES % (AUTO) 26.3 % (20.0-44.0); MEAN CORPUSCULAR HEMOGLOBIN 30 PG (26.0-33.0); MEAN CORPUSCULAR HGB CONC 33 g/dl (31.0-36.0); MEAN CORPUSCULAR VOLUME 90 fL (80-96); MONOCYTES # (AUTO) 0.7 K/uL (0.1-1.30); MONOCYTES % (AUTO) 10.3 % (2.0-12.0); NEUTROPHILS % (AUTO) 58.1 % (43.0-81.0); PLATELET COUNT (AUTO) 172 K/uL (150-450); RED BLOOD CELL COUNT(AUTO) 4.41 MIL/uL (4.5-6.0); WHITE BLOOD COUNT (AUTO) 6.8 K/uL (4.3-11.0)
[2024-08-12 08:22] LABS: CALCIUM, SERUM 8.2 mg/dL (8.5-10.1); CREATININE 2.1 mg/dL (0.6-1.3); POTASSIUM 4.2 mmol/L (3.5-5.1)
[2024-08-12 08:26] LABS: MAGNESIUM 1.8 mg/dL (1.8-2.4); PHOSPHORUS 3.3 mg/dL (2.5-4.9)
[2024-08-12] MEDS: GABAPENTIN 300 MG CAPSULE PO SCH (08:39)
[2024-08-12] MEDS: ATORVASTATIN 10 MG TABLET PO SCH (08:39)
[2024-08-12] MEDS: PANTOPRAZOLE 40 MG VIAL IV SCH (08:39)
[2024-08-12] MEDS: AMLODIPINE BESYLATE 5 MG TABLET PO SCH (08:39)
[2024-08-12] MEDS ORDERED: CLOPIDOGREL BISULFATE 75 MG TABLET PO SCH (09:00)
[2024-08-12] MEDS: CLOPIDOGREL BISULFATE 75 MG TABLET PO SCH (12:19)
[2024-08-13 04:00] VITALS: BP 134/80; TEMP 97.7; O2SAT 99
[2024-08-13 08:00] VITALS: BP 130/86; TEMP 97.8; O2SAT 100
[2024-08-13] MEDS: PANTOPRAZOLE 40 MG TABLET.DR PO SCH (08:25)
[2024-08-13 12:00] VITALS: BP 138/86; TEMP 97.8; O2SAT 98
[2024-08-13 16:00] VITALS: BP 137/79; TEMP 97.9; O2SAT 97
[2024-08-13 20:00] VITALS: BP 124/71; TEMP 97.5; O2SAT 98
[2024-08-14] VITALS: BP 140/74; TEMP 98.3; O2SAT 97
[2024-08-14 04:00] VITALS: BP 114/83; TEMP 98; O2SAT 97
[2024-08-14 06:56] LABS: BASOPHILS # (AUTO) 0.1 K/uL (0.0-0.2); EOSINOPHILS # (AUTO) 0.2 K/uL (0.0-0.7); EOSINOPHILS % (AUTO) 3.1 % (0.0-6.0); HEMATOCRIT 38 % (39-51); HEMOGLOBIN 12.7 g/dL (13.5-17.5); LYMPHOCYTES # (AUTO) 1.1 K/uL (0.8-4.8); LYMPHOCYTES % (AUTO) 16.9 % (20.0-44.0); MEAN CORPUSCULAR HEMOGLOBIN 30 PG (26.0-33.0); MEAN CORPUSCULAR HGB CONC 34 g/dl (31.0-36.0); MEAN CORPUSCULAR VOLUME 89 fL (80-96); MONOCYTES # (AUTO) 0.7 K/uL (0.1-1.30); MONOCYTES % (AUTO) 10.7 % (2.0-12.0); NEUTROPHILS # (AUTO) 4.5 K/uL (1.8-8.9); NEUTROPHILS % (AUTO) 68.3 % (43.0-81.0); PLATELET COUNT (AUTO) 156 K/uL (150-450); RED BLOOD CELL COUNT(AUTO) 4.25 MIL/uL (4.5-6.0); RED CELL DISTRIBUTION WIDTH 14.7 % (11.5-15.0); WHITE BLOOD COUNT (AUTO) 6.6 K/uL (4.3-11.0)
[2024-08-14 07:21] LABS: ALBUMIN 2.6 g/dL (3.4-5.0); BILIRUBIN,TOTAL 0.3 mg/dL (0.2-1.0); CALCIUM, SERUM 7.9 mg/dL (8.5-10.1); CREATININE 2.1 mg/dL (0.6-1.3); MAGNESIUM 1.6 mg/dL (1.8-2.4); PHOSPHORUS 2.5 mg/dL (2.5-4.9); POTASSIUM 3.8 mmol/L (3.5-5.1); TOTAL PROTEIN, SERUM 6.4 g/dL (6.4-8.2)
[2024-08-14 08:00] VITALS: BP 134/84; TEMP 97.5; O2SAT 95
[2024-08-14] MEDS: MAGNESIUM OXIDE 400 MG TABLET PO ONE (11:57)
[2024-08-14 12:00] VITALS: BP 141/80; TEMP 97.7; O2SAT 99
[2024-08-14 16:00] VITALS: BP 129/70; TEMP 97.6; O2SAT 96
[2024-08-14 20:00] VITALS: BP 143/72; TEMP 98.2; O2SAT 97
[2024-08-15] VITALS: BP 123/80; TEMP 98.4; O2SAT 98
[2024-08-15 04:00] VITALS: BP 136/82; TEMP 98.4; O2SAT 100
[2024-08-15 07:17] LABS: CALCIUM, SERUM 8.3 mg/dL (8.5-10.1); CREATININE 2.1 mg/dL (0.6-1.3); MAGNESIUM 1.7 mg/dL (1.8-2.4)
[2024-08-15 08:00] VITALS: BP 129/79; TEMP 97.7; O2SAT 97
[2024-08-15 10:06] LABS: PTH, INTACT 61 pg/mL (15-65)
[2024-08-15 12:00] VITALS: BP 137/79; TEMP 97.7; O2SAT 98
[2024-08-15] MEDS: MAGNESIUM OXIDE 400 MG TABLET PO ONE (12:31)
[2024-08-15 14:09] LABS: *SPE ALBUMIN 2.9 g/dL (2.9-4.4); *SPE ALPHA-1-GLOBULIN 0.2 g/dL (0.0-0.4); *SPE ALPHA-2-GLOBULIN 0.7 g/dL (0.4-1.0); *SPE BETA GLOBULIN 0.9 g/dL (0.7-1.3); *SPE M-SPIKE Not Observed g/dL (Not Observed); *SPE PROTEIN TOTAL 5.9 g/dL (6.0-8.5); *SPEGAMMA GLOBULIN 1.3 g/dL (0.4-1.8)
[2024-08-15 16:00] VITALS: BP 130/77; TEMP 98.1; O2SAT 94
[2024-08-15 20:00] VITALS: BP 126/72; TEMP 98.4; O2SAT 97
[2024-08-16] VITALS: BP 128/72; TEMP 98.2; O2SAT 97
[2024-08-16 04:00] VITALS: BP 130/67; TEMP 97.9; O2SAT 98
[2024-08-16 08:00] VITALS: BP 106/84; TEMP 98.2; O2SAT 98
[2024-08-16 08:36] LABS: CALCIUM, SERUM 8.1 mg/dL (8.5-10.1); MAGNESIUM 1.7 mg/dL (1.8-2.4); POTASSIUM 4.3 mmol/L (3.5-5.1)
[2024-08-16] MEDS: MAGNESIUM OXIDE 400 MG TABLET PO ONE (10:07)
[2024-08-16 12:00] VITALS: BP 134/76; TEMP 98.1; O2SAT 96
[2024-08-16 16:00] VITALS: BP 129/66; TEMP 98.1; O2SAT 95
[2024-08-16 20:00] VITALS: BP 114/97; TEMP 98.1; O2SAT 97
[2024-08-17] VITALS: BP 123/73; TEMP 98.1; O2SAT 97
[2024-08-17 04:00] VITALS: BP 135/80; TEMP 98.2; O2SAT 97
[2024-08-17 07:19] LABS: CALCIUM, SERUM 8.7 mg/dL (8.5-10.1); CREATININE 2.1 mg/dL (0.6-1.3); POTASSIUM 4.1 mmol/L (3.5-5.1)
[2024-08-17 08:00] VITALS: BP 125/76; TEMP 98.1; O2SAT 96
[2024-08-17 12:00] VITALS: BP 130/81; TEMP 98.1; O2SAT 96
[2024-08-17 16:00] VITALS: BP 118/72; TEMP 98.2; O2SAT 98
[2024-08-17 20:00] VITALS: BP 130/85; TEMP 97.5; O2SAT 97
[2024-08-18] VITALS: BP_SYST 122; BP_SYST 133; BP_DIAS 75; BP_DIAS 76; TEMP 97.5; TEMP 97.8; O2SAT 96; O2SAT 98
[2024-08-18 04:00] VITALS: BP 126/79; TEMP 97.5; O2SAT 99
[2024-08-18 07:15] LABS: CALCIUM, SERUM 8.2 mg/dL (8.5-10.1); CREATININE 2.3 mg/dL (0.6-1.3); POTASSIUM 4.4 mmol/L (3.5-5.1)
[2024-08-18 08:00] VITALS: BP 127/80; TEMP 98.5; O2SAT 99
[2024-08-18 12:00] VITALS: BP 121/75; TEMP 98.1; O2SAT 98
[2024-08-18 16:00] VITALS: BP 124/71; TEMP 98; O2SAT 99
[2024-08-18 20:00] VITALS: BP 133/75; TEMP 97.9; O2SAT 98
[2024-08-19] VITALS: BP 133/75; TEMP 97.8; O2SAT 98
[2024-08-19 04:00] VITALS: BP 129/63; TEMP 97.3; O2SAT 98
[2024-08-19 07:36] LABS: CALCIUM, SERUM 8.6 mg/dL (8.5-10.1); CREATININE 2.3 mg/dL (0.6-1.3); POTASSIUM 4.2 mmol/L (3.5-5.1)
[2024-08-19 08:00] VITALS: BP 139/81; TEMP 98.2; O2SAT 97
[2024-08-19 12:00] VITALS: BP 140/75; TEMP 97.8; O2SAT 98
[2024-08-19] MEDS: METOPROLOL TARTRATE 50 MG TABLET PO SCH (12:29)
[2024-08-19] MEDS: ASPIRIN 81 MG TAB.CHEW PO SCH (12:29)
[2024-08-19 16:00] VITALS: BP 147/78; TEMP 98; O2SAT 98
[2024-08-19 20:00] VITALS: BP 143/83; TEMP 98.2; O2SAT 98
[2024-08-20] VITALS: BP 120/77; TEMP 98.1; O2SAT 99
[2024-08-20 04:00] VITALS: BP 130/87; TEMP 98.4; O2SAT 97
[2024-08-20 07:29] LABS: MAGNESIUM 1.7 mg/dL (1.8-2.4); PHOSPHORUS 3.6 mg/dL (2.5-4.9)
[2024-08-20 08:00] VITALS: BP 124/92; TEMP 97.9; O2SAT 98
[2024-08-20 08:13] LABS: CALCIUM, SERUM 8.7 mg/dL (8.5-10.1); CREATININE 2.1 mg/dL (0.6-1.3); POTASSIUM 4.4 mmol/L (3.5-5.1)
[2024-08-20] MEDS: MAGNESIUM OXIDE 400 MG TABLET PO ONE (11:31)
[2024-08-20 16:00] VITALS: BP 116/82; TEMP 97.8; O2SAT 97
[2024-08-20 22:00] VITALS: BP 119/85; TEMP 98.1; O2SAT 97
[2024-08-21 04:00] VITALS: BP 129/77; TEMP 98.2; O2SAT 97
[2024-08-21 06:57] LABS: CALCIUM, SERUM 8.4 mg/dL (8.5-10.1); CREATININE 2.1 mg/dL (0.6-1.3); POTASSIUM 4.3 mmol/L (3.5-5.1)
[2024-08-21 07:02] LABS: MAGNESIUM 1.9 mg/dL (1.8-2.4); PHOSPHORUS 3.5 mg/dL (2.5-4.9)
[2024-08-21 10:00] VITALS: BP 151/86; TEMP 98; O2SAT 98
[2024-08-21 20:53] VITALS: BP 123/71; TEMP 97.7; O2SAT 97
[2024-08-22 05:24] VITALS: BP 135/74; TEMP 98; O2SAT 100
[2024-08-22 06:47] LABS: CALCIUM, SERUM 8.2 mg/dL (8.5-10.1); CREATININE 2.2 mg/dL (0.6-1.3); POTASSIUM 4.2 mmol/L (3.5-5.1)
[2024-08-22 06:51] LABS: PHOSPHORUS 3.9 mg/dL (2.5-4.9)
[2024-08-22 10:00] VITALS: BP 137/81; TEMP 97.9; O2SAT 100
== END 2024-08-22 11:40 | disposition left against medical advice (07) | DRG 190 ==
LOC: ER 16:10 → TELE1 20:44 → MEDSG1 08-14 10:19 → TELE1 08-14 17:45 → MEDSG1 08-20 08:55
PROVIDERS: ATTEND Internal Medicine
DX: I21.4 Non-ST elevation (NSTEMI) myocardial infarction (principal); N17.0 Acute kidney failure with tubular necrosis; I50.41 Acute combined systolic (congestive) and diastolic (congestive) heart failure; E44.0 Moderate protein-calorie malnutrition; I13.0 Hypertensive heart and chronic kidney disease with heart failure and stage 1 through stage 4 chronic kidney disease, or unspecified chronic kidney disease; N18.9 Chronic kidney disease, unspecified; E11.22 Type 2 diabetes mellitus with diabetic chronic kidney disease; E11.51 Type 2 diabetes mellitus with diabetic peripheral angiopathy without gangrene; R29.6 Repeated falls; Z91.81 History of falling; E88.09 Other disorders of plasma-protein metabolism, not elsewhere classified; E78.5 Hyperlipidemia, unspecified; M54.30 Sciatica, unspecified side; Z79.4 Long term (current) use of insulin; Z79.02 Long term (current) use of antithrombotics/antiplatelets; Z59.00 Homelessness unspecified; Z79.899 Other long term (current) drug therapy; Z87.891 Personal history of nicotine dependence; I35.0 Nonrheumatic aortic (valve) stenosis; R42 Dizziness and giddiness; I70.8 Atherosclerosis of other arteries
CPT/HCPCS: 36415; 70450-TC; 71250-TC; 72125-TC; 72170-TC; 73110; 76770-TC; 80048-TC; 80053-TC; 80076-TC; 82550-TC; 82962-TC; 83735-TC; 83880; 83970; 84100-TC; 84155; 84165; 84484-TC; 85025-TC; 93307-TC; 97110-TC; 97116-TC; 97530-TC; A4223; G0378; J1815; J2470; J7030